=== PATIENT | male | born 1965 | race Caucasian/White ===

== ENCOUNTER 2018-05-30 19:13 | Inpatient (IN) | payer OTHER ==
[~2018-05-30] VITALS: Ht 187.9 cm; Wt 109.5 kg
[2018-05-30] VITALS (7 sets, daily range): BP systolic 97–117; BP diastolic 58–73
--- NOTE | ~2018-05-30 | PR ---
[place], [place] PROGRESS NOTE NAME: PARUL LEON UNIT #: [id number] ROOM: 504 DOCTOR: MARYSOL DALTON MD BIRTHDATE: [birth year] DOS: 06/06/2018 I agree with the assessment and plan made by the nurse practitioner, Cheli Young. I had a dumd-ci-frug encounter, I reviewed the images and labs and made the necessary changes in the note. Clarissa Dalton MD CM:PNTRANS [phone] MARYSOL DALTON MD 06/25/18 0730 interface
--- NOTE | ~2018-05-30 | EKG ---
[place], [place] ELECTROCARDIOGRAM REPORT NAME: PARUL LEON UNIT #: [id number] ROOM: 504 DOCTOR: ANGE DRAFT REPORT BIRTHDATE: [birth year] [facility] Test Date: 2018-05-30 Test Time: 20:49:42 Pat Name: PARUL LEON Department: Room: [facility] Gender: M Curing Press Operator: Darien Brantley : 1965 Requested By: KIMBERLEY JOHNSON Order Number: [id number] Reading MD: Lusi Lucio MD Measurements Intervals [place] Rate: 91 P: 61 [place]: 180 QRS: 31 QRSD: 100 T: 35 QT: 387 QTc: 477 Interpretive Statements Sinus rhythm Ventricular premature complex Borderline prolonged QT interval Electronically Signed On 06-01-2018 13:58:38 PDT by Luis Lucio MD CM:EKGRPT:ELECTROCARDIOGRAM REPORT [id number] KIMBERLEY JOHNSON EPIPHANY DRAFT REPORT KIMBERLEY JOHNSON
--- NOTE | ~2018-05-30 | PR ---
[place], [place] PROGRESS NOTE [id number] UNIT #: [id number] ROOM: 504 DOCTOR: ELMA CAMPOS DPM BIRTHDATE: [birth year] DOS: 06/01/2018 PREOP NOTE The patient was seen in preoperative area for evaluation of both feet. He was seen yesterday in the hospital and found to have infection in both feet. The patient states about a year ago when he was living in [place], he had the amputation of part of his right foot and the amputation of his left great toe. He states the right foot never completely healed. He has had wounds on both feet for quite some time and he states he has been taking care of them himself. He has not seen a doctor for a while. He denies being diabetic, but his A1c is elevated. I examined both feet. Pedal pulses are decreased. Sensation is diminished bilaterally. There is a large area of ulceration, plantar third metatarsal head with obvious purulent drainage. There is localized edema and erythema as well as malodor, looks like it tracks dorsally and there is a small wound dorsally on the forefoot on the left side. There is also a wound at the medial and lateral left second toe. Previous great toe has been amputated. On the right foot, there is a wound distal medial near the first metatarsal of the transmetatarsal amputation site with fluctuance and crepitus, localized erythema and increased temperature noted. I discussed with the patient and proposed procedure would be incision and drainage of both feet with bone biopsies. The goal is to get infection under control in both feet. After reviewing the CT and x-ray on the left side, he will most likely need a transmetatarsal amputation, but today we are going to control the infection, drained the abscesses and flushed both feet out. I wanted to order a postoperative arterial vascular study as well. I discussed with the patient possible complications of the procedures and that he will most definitely need more work done possibly on both feet. He is agreeable to the procedures and we will proceed with taking him to the OR shortly. He was given the opportunity to ask questions and all questions were answered. ELMA DIANNEESKO, DPM CM:PNTRANS [phone] ELMA CAMPOS DPM 06/02/18 0732 interface
--- NOTE | ~2018-05-30 | CON ---
[place], [place] REPORT OF CONSULTATION NAME: PARUL LEON UNIT #: [id number] ROOM: 504 [facility] [birth year] DOS: 06/06/2018 I agree with the assessment and plan made by the nurse practitioner, Cheli Young. I had a mhkg-dl-[id number] encounter, I reviewed the images and labs and made the necessary changes in the note. Clarissa Bhatia MD CM:CONSTR:REPORT OF CONSULTATION 1706 06/25/18 0731 LATASHA ALTAMIRANO.TM
--- NOTE | ~2018-05-30 | PR ---
[place], [place] PROGRESS NOTE NAME: PARUL LEON UNIT #: [id number] ROOM: 504 DOCTOR: ELMA CAMPOS DPM BIRTHDATE: [birth year] DOS: 06/05/2018 SUBJECTIVE: This patient is seen 1 day status post transmetatarsal amputation, left foot and 4 days status post I and D with bone biopsy and debridement, right foot. He states he is feeling well. He has no pain. Denies fever, chills, nausea, vomiting or night sweats. Denies calf pain. Overall, no complaints in regards to his feet. OBJECTIVE: EXTREMITIES: Dressings are removed from both feet. The right foot is extremely clean and granular at the surgical site; the bone is almost completely granulated over at this time; there is no surrounding edema or erythema, no purulent drainage, no malodor, site is very clean, granular and healing well. The left foot TMA site looks good; incisions well coapted; no active bleeding, no fluctuance or signs of abscess or hematoma; no signs of active infection. All infected tissue has been removed and left foot appears to be doing well 1 day post-surgery. ASSESSMENT: Status post surgery, both feet. PLAN: At this time, recommend wound VAC application to the right foot and change every 3 days. We could remove it on Friday and evaluate the wound, but if there is a problem over the weekend, nursing can address it. Adaptic was applied prior to application of the wound VAC. On the left foot, recommend a dressing change every other day with Adaptic, 4x4s, ABD, Kerlix and Randall wrap. He is doing very well with both feet at this time status post surgery. Continue very limited weightbearing. We will check on him over the weekend and continue to follow while in the hospital, but right now both feet are stable and without any signs of infection. ELMA CAMPOS DPM CM:PNTRANS [id number] ELMA CAMPOS DPM 06/06/18 0035 interface
--- NOTE | ~2018-05-30 | O ---
[place], [place] OPERATIVE NOTE NAME: PARUL LEON UNIT #: [id number] ROOM: 504 DOCTOR: ELMA ROSSI DPM BIRTHDATE: [birth year] DOS: 06/01/2018 SURGEON: Elma Rossi DPM [employer] SALES REPRESENTATIVE: Samm Arias DPM resident PREOPERATIVE DIAGNOSES: Abscess, infection, osteomyelitis, right and left foot. POSTOPERATIVE DIAGNOSES: Abscess, infection, osteomyelitis, right and left foot. PROCEDURES: Incision and drainage of abscess, right foot and left foot with bone biopsy and bone debridement. FINDINGS: LMAC. INJECTABLES: 10 mL of 0.5% Marcaine plain injected into each foot for a total of 20 mL. ESTIMATED BLOOD LOSS: About 10 mL. PATHOLOGY: Bone for pathology and cultures in both feet. COMPLICATIONS: None. DESCRIPTION OF PROCEDURE: After appropriate preoperative evaluation, the patient was brought in the OR and placed on the operating table in supine position. Attention was directed to both feet where there is noted to be ulcerations with infection noted. Anesthesia was then administered per anesthesia record. Next, a total of 10 mL of 0.5% Marcaine plain was injected into each foot proximal to the ulcerations in a field block fashion. The areas were then prepped and draped in the usual sterile manner and both feet were lowered in surgical field. The left foot was covered with a stockinette. Attention was directed to the right foot, there is noted to be ulceration dorsal distal to the first metatarsal area of the transmetatarsal amputation site. This ulcer did track plantarly and plantarly there was some crepitation of the tissue with some expressible purulent drainage. Using a 15 blade, this area was incised open and there was noted to be first metatarsal noted within the ulceration. This was palpable prior to incision. There was noted to be about 2-3 mL of purulence in the area. Area was inspected for any tracking and tracked a little more dorsal so we opened that area up. A bone cutter and rongeur were used to resect the prominent first metatarsal. Cultures were done of the bone and this bone will also be sent to pathology as well. No further purulence was found and no further tracking was noted, so the area was irrigated with pulse irrigation with 3 liters of normal saline. The area was packed with half inch plain Nu Gauze packing, 4 x 4's, ABD, Kerlix and an Randall wrap. Gloves were changed. Separate instruments were used and the dressed area was removed from the surgical field. At this time, attention was directed to the left foot where there was noted to be a large ulceration in the plantar third metatarsal head. There was obvious purulent drainage, expressible drainage noted that was [place], [place] OPERATIVE NOTE NAME: PARUL LEON UNIT #: [id number] ROOM: [facility] DOCTOR: BETH BARBA,ELMA BIRTHDATE: [birth year] malodor. This tracks both dorsally and proximally and in the second intermetatarsal space, there was destruction of bone noted to palpation. A rongeur was used to resect some of the destroyed bone. Bone cultures were done and the bone was also sent to pathology for evaluation. The area was incised both dorsally and plantarly and there was a 3 or 4 mL of purulent drainage noted. There was a large deficit in the forefoot where the abscess and infection appears chronic in nature. There was also a wound noted to medial-lateral second toe that tracked plantarly and that was incised as well. No further purulence was encountered and no further tracking was seen, so the area was pulse irrigated with 3 liters of normal saline. Half inch plain Nu Gauze packing, 4 x 4's, ABDs, Kerlix, and Randall was applied. Vascularity established to his feet during the procedure. No necrotic tissue was encountered and infections were under good control at this point. The patient left the OR with vital signs stable and intact and transported to the recovery room. We will await cultures and bone cultures, order arterial vascular studies to evaluate for peripheral flow. The patient will most likely need transmetatarsal amputation here in the near future, we are going to establish arterial flow and get the infection under control prior to this. The patient to be followed up in the hospital tomorrow for reevaluation. ELMA JAMESON ROSSI CM:OPRECORD:OPERATIVE NOTE [id number] ELMA ROSSI DPM 06/09/18 1003 interface
--- NOTE | ~2018-05-30 | PR ---
[place], [place] PROGRESS NOTE NAME: PARUL LEON UNIT #: [id number] ROOM: 504 DOCTOR: NOLAN MORAN BIRTHDATE: [birth year] DOS: 06/06/2018 SUBJECTIVE: The patient is a 52-year-old male who is being followed for an infected right diabetic foot with osteomyelitis. The pathology from 06/02/2018 did show acute osteomyelitis from bilateral feet. The cultures have been polymicrobial including group G strep, Proteus and MRSA. He remains on Rocephin. The vancomycin was to be continued, but appears to have been stopped this morning. He is awaiting a bed at [facility]. He is tolerating the antibiotics. Denies fever, chills, nausea, vomiting or diarrhea. No rash or itch. No cough, shortness of breath, no pain, no fevers. VITAL SIGNS: Temperature 98.1, pulse 75, respirations 18, BP 110/67. LABORATORY DATA: WBCs 7.2, platelets 365, BUN 12, creatinine 0.7. PHYSICAL EXAMINATION: GENERAL: A 52-year-old male, in no acute distress. HEENT: Normocephalic, no thrush. LUNGS: Clear to auscultation bilaterally. Respirations even and unlabored. HEART: Regular rhythm. No murmur appreciated. ABDOMEN: Soft, nondistended. EXTREMITIES: +1 to 2 edema bilateral lower extremities, bilateral feet wrapped. Right foot with a VAC in place. SKIN: Warm, dry, free of rashes. ASSESSMENT: Bilateral feet osteomyelitis with polymicrobial infection including group G strep methicillin-resistant Staphylococcus aureus and Proteus. PLAN: Continue the Rocephin. Resume the vancomycin. DECEMBER LUISA FRANCISCO [place], [place] PROGRESS NOTE NAME: PARUL LEON UNIT #: [id number] ROOM: 504 DOCTOR: NOLAN MORANDECEMBER BIRTHDATE: [birth year] Clarissa Bhatia MD CM:MARBIN [id number] DECEMBER NOLAN [facility] 06/25/18 0729 interface
--- NOTE | ~2018-05-30 | PR ---
[place], [place] PROGRESS NOTE NAME: PARUL LEON UNIT #: [id number] ROOM: 504 DOCTOR: MARYSOL DALTON MD BIRTHDATE: [birth year] DOS: 06/06/2018 I agree with the assessment and plan made by the nurse practitioner, Cheli Young. I reviewed the labs and imaging, and made the necessary changes in the note. Clarissa Dalton MD CM:PNTRANS [phone] MARYSOL DALTON MD 06/25/182104 interface
--- NOTE | ~2018-05-30 | O ---
[place], [place] OPERATIVE NOTE NAME: PARUL LEON UNIT #: [id number] ROOM: 504 DOCTOR: YEFRI BARBAJUDITH Lobo BIRTHDATE: [birth year] DOS: 06/04/2018 INTERIM NOTE: The patient was consulted for transmetatarsal amputation of the left forefoot due to continued purulent drainage, infection and apparent osteomyelitis with severe destructive changes to the bones of the forefoot. Discussed with the patient, he may need a tendo Achilles lengthening or endoscopic gastro recession at a later date. Discussed the advantages and disadvantages of the procedure, potential complications including but not limited to over correction, under correction, recurrence of deformity, continued infection, more proximal amputation, loss of limb, dehiscence, nerve pain, etc. The patient understood and agreed to proceed with transmetatarsal amputation of the left foot. PREOPERATIVE DIAGNOSES: Infection, abscess, osteomyelitis, left forefoot of the toes and metatarsals. POSTOPERATIVE DIAGNOSES: Infection, abscess, osteomyelitis, left forefoot of the toes and metatarsals. Pending pathology. PROCEDURE PERFORMED: Transmetatarsal amputation, left foot. ESTIMATED BLOOD LOSS: Approximately 200 mL. SPECIMEN: Left forefoot. DRAINS: None. PACKING: None. COLOR PRINTER OPERATOR: Sander Keating DPM. ANESTHESIA: General. PROCEDURE IN DETAIL: The patient was brought to operating room, placed in the operating table in supine position. Anesthesia administered per Anesthesia Department. Local block of 10 mL of 1% lidocaine plain was utilized for ankle block. The left lower extremity was prepped and draped in usual aseptic manner. There were ulcerations with purulent drainage noted to the plantar forefoot and dorsal forefoot. An incision was made with a 15 blade transversely proximal to the infected open wounds, to and through subcutaneous tissue level. Meticulous dissection was followed down to the level of the metatarsal bones, where the forefoot was disarticulated at the MPJs. Excessive bleeding was noted while performing meticulous dissection of the metatarsals to normal bone more proximally; therefore, tourniquet was then applied and inflated to 300 mmHg to the left thigh, was on for total duration of 26 minutes. Dissection continued after elevation of the tourniquet to free the metatarsals to the proximal metatarsals to healthy bone. All of the metatarsals distally were noted to be necrotic, discolored, black and brown discoloration with necrotic soft bone consistent with chronic osteomyelitis. Next, a sagittal saw was utilized to resect the metatarsals 1 through 5 proximally to maintain a metatarsal parabola. [place], [place] OPERATIVE NOTE NAME: PARUL LEON UNIT #: [id number] ROOM: [facility] DOCTOR: JUDITH ASIF DPM BIRTHDATE: [birth year] The area was made smooth with bone rongeur. There were no sharp prominent edges to the resected remaining metatarsals. All necrotic nonviable soft tissue was then excised meticulously with a 15 blade at this time to normal healthy tissue. The exposed remaining tendons were resected. The tourniquet was then released at this time and all bleeders were ligated with the cautery. There were no further bleeders noted at this time. Next, the power pulse irrigation with sterile saline was utilized and next primary closure of the flap plantar to dorsal was performed utilizing 2-0 nylon in alternating simple interrupted stich, horizontal and vertical mattress stitches to close the remaining soft tissue. The incision was noted to be well coapted with the sutures intact and no excessive bleeding noted and no apparent complication. The postop dressings were then applied consisting of Betadine soaked adaptic, 4 x 4s, ABD, Kerlix and CHATA bandage. The patient tolerated the procedures and the anesthesia well and will return to the nursing unit to resume orders. The patient is to maintain nonweightbearing status, bedside commode to be used, elevate the left leg and apply ice 30 minutes per hour today behind the left knee. We ordered a stat H and H on the patient which returned at 8.0, down from 8.1 preoperatively. Internal Medicine will be notified by the resident, Dr. Keating, to have them to keep an eye on the H and H due to the blood loss and further bleeding possible, additional blood to be given. Discussed the case with Dr. Rossi, who will see the patient tomorrow and he will be covering for me this weekend and will answer any questions if need be. The patient was aware that he may indeed a KENYATTA or gastroc recession in the future. The patient did show stenosis in the arterial testing; therefore, I would like to obtain a vascular consultation before proceeding with any further proximal procedure such a KENYATTA or gastroc recession. Again, the patient will be seen tomorrow by Dr. Rossi. JUDITH ASIF DPM CM:OPRECORD:OPERATIVE NOTE [id number] JUDITH ASIF DPM 06/10/18 0803 interface
[2018-05-30 20:01] LABS: BASO # 0.1 10*3/uL (0.0-0.1); BASO % 0.4 % (0.0-1.0); EOS # 0.1 10*3/uL (0.0-0.4); EOS % 0.7 % (1.0-4.0); HEMATOCRIT 27.1 % (42.0-52.0); HEMOGLOBIN 8.5 g/dl (14.0-18.0); LYMPH # 1.7 10*3/uL (1.3-4.4); LYMPH % 12.8 % (27.0-41.0); MEAN CELL VOLUME 81.4 fl (80.0-94.0); MEAN CORPUSCULAR HGB 25.5 pg (27.0-31.0); MEAN CORPUSCULAR HGB CONC 31.4 g/dl (33.0-37.0); MEAN PLATELET VOLUME 9.7 fl (9.6-12.3); MONO # 0.9 10*3/uL (0.1-1.0); MONO % 6.7 % (3.0-9.0); NEUT # 10.5 10*3/uL (2.3-7.9); NEUT % 78.5 % (47.0-73.0); PLATELET COUNT AUTOMATED 494 10*3/uL (130-400); RED BLOOD COUNT 3.33 10*6/uL (4.50-5.90); RED CELL DISTRI WIDTH 15.6 % (0-14.5); WHITE BLOOD COUNT 13.3 10*3/uL (4.8-10.8)
[2018-05-30 20:17] LABS: ALBUMIN 2.3 gm/dl (3.1-4.5); ALKALINE PHOSPHATASE 103 U/L (45-117); BUN 22 mg/dl (7-24); CHLORIDE 91 mmol/L (98-107); CREATININE 1.42 mg/dL (0.70-1.30); POTASSIUM 2.8 mmol/L (3.5-5.1); SGOT/AST 22 IU/L (3-35); SGPT/ALT 23 U/L (12-78); SODIUM 129 mmol/L (136-145); TOTAL PROTEIN 8.8 gm/dL (6.4-8.2)
[2018-05-30 20:21] LABS: TROPONIN I < 0.015 ng/ml (<0.045)
[2018-05-31] VITALS: BP 103/62
[2018-05-31] MEDS ORDERED: FUROSEMIDE40 MG PO (01:39)
[2018-05-31] MEDS ORDERED: GOOD NEIGHBOR P20 MG PO (01:41)
[2018-05-31] MEDS ORDERED: LISINOPRIL2.5 MG PO (01:41)
[2018-05-31] MEDS ORDERED: POTASSIUM CHLO20 MEQ PO (01:41)
[2018-05-31] MEDS ORDERED: METOLAZONE2.5 MG PO (01:42)
[2018-05-31] MEDS ORDERED: B12100 MC1 PO (01:42)
[2018-05-31] MEDS ORDERED: FLONASE ALLERG9.9 ML NAS (01:43)
[2018-05-31 06:31] LABS: BASO % 0.4 % (0.0-1.0); BUN 23 mg/dl (7-24); CHLORIDE 95 mmol/L (98-107); CHOLESTEROL 115 mg/dL (<200); EOS # 0.2 10*3/uL (0.0-0.4); EOS % 1.7 % (1.0-4.0); HDL CHOLESTEROL 35 mg/dl (40-60); HEMATOCRIT 25.3 % (42.0-52.0); HEMOGLOBIN 7.9 g/dl (14.0-18.0); LDL CHOLESTEROL 64 mg/dL (9-159); LYMPH % 10.7 % (27.0-41.0); MEAN CELL VOLUME 80.8 fl (80.0-94.0); MEAN CORPUSCULAR HGB 25.2 pg (27.0-31.0); MEAN CORPUSCULAR HGB CONC 31.2 g/dl (33.0-37.0); MEAN PLATELET VOLUME 9.6 fl (9.6-12.3); MONO # 0.6 10*3/uL (0.1-1.0); MONO % 6.4 % (3.0-9.0); NEUT # 7.7 10*3/uL (2.3-7.9); NEUT % 79.5 % (47.0-73.0); PHOSPHOROUS 3.4 mg/dL (2.5-4.9); PLATELET COUNT AUTOMATED 413 10*3/uL (130-400); POTASSIUM 3.1 mmol/L (3.5-5.1); RED BLOOD COUNT 3.13 10*6/uL (4.50-5.90); RED CELL DISTRI WIDTH 15.8 % (0-14.5); SODIUM 130 mmol/L (136-145); TRIGLYCERIDES 80 mg/dl (<150); VLDL CHOLESTEROL 16 mg/dL (6-40); WHITE BLOOD COUNT 9.7 10*3/uL (4.8-10.8)
[2018-05-31 07:38] LABS: VITAMIN D, 25-HYDROXY 20.8 ng/mL (30-100)
[2018-05-31 08:00] VITALS: BP 96/55
[2018-05-31 13:40] LABS: BASO # 0.1 10*3/uL (0.0-0.1); BASO % 0.6 % (0.0-1.0); EOS # 0.2 10*3/uL (0.0-0.4); EOS % 2.4 % (1.0-4.0); HEMATOCRIT 25.8 % (42.0-52.0); LYMPH % 10.5 % (27.0-41.0); MEAN CELL VOLUME 81.9 fl (80.0-94.0); MEAN CORPUSCULAR HGB 25.4 pg (27.0-31.0); MEAN PLATELET VOLUME 9.2 fl (9.6-12.3); MONO # 0.8 10*3/uL (0.1-1.0); MONO % 8.8 % (3.0-9.0); NEUT # 6.9 10*3/uL (2.3-7.9); NEUT % 76.3 % (47.0-73.0); PLATELET COUNT AUTOMATED 376 10*3/uL (130-400); RED BLOOD COUNT 3.15 10*6/uL (4.50-5.90); RED CELL DISTRI WIDTH 15.7 % (0-14.5); WHITE BLOOD COUNT 9.1 10*3/uL (4.8-10.8)
[2018-05-31 13:49] LABS: ACT PARTIAL THROMBO TIME 25.2 SECONDS (20.8-31.5)
[2018-05-31 16:00] VITALS: BP 96/60
[2018-05-31 20:00] VITALS: BP 156/73
[2018-06-01] VITALS (8 sets, daily range): BP systolic 94–160; BP diastolic 52–80
[2018-06-01 06:16] LABS: BASO # 0.1 10*3/uL (0.0-0.1); BASO % 0.8 % (0.0-1.0); EOS # 0.2 10*3/uL (0.0-0.4); EOS % 2.7 % (1.0-4.0); HEMATOCRIT 27.4 % (42.0-52.0); HEMOGLOBIN 8.2 g/dl (14.0-18.0); LYMPH # 1.1 10*3/uL (1.3-4.4); MEAN CELL VOLUME 83.5 fl (80.0-94.0); MEAN CORPUSCULAR HGB CONC 29.9 g/dl (33.0-37.0); MEAN PLATELET VOLUME 9.5 fl (9.6-12.3); MONO # 0.4 10*3/uL (0.1-1.0); MONO % 6.7 % (3.0-9.0); NEUT # 4.8 10*3/uL (2.3-7.9); NEUT % 72.1 % (47.0-73.0); PLATELET COUNT AUTOMATED 432 10*3/uL (130-400); RED BLOOD COUNT 3.28 10*6/uL (4.50-5.90); RED CELL DISTRI WIDTH 15.6 % (0-14.5); WHITE BLOOD COUNT 6.6 10*3/uL (4.8-10.8)
[2018-06-01 06:32] LABS: CHLORIDE 99 mmol/L (98-107); CREATININE 0.78 mg/dL (0.70-1.30); POTASSIUM 3.9 mmol/L (3.5-5.1); SODIUM 138 mmol/L (136-145)
[2018-06-01 06:35] LABS: BUN 16 mg/dl (7-24)
[2018-06-02] VITALS: BP 94/58
[2018-06-02 06:18] LABS: BASO # 0.1 10*3/uL (0.0-0.1); BASO % 0.9 % (0.0-1.0); EOS # 0.2 10*3/uL (0.0-0.4); HEMATOCRIT 26.5 % (42.0-52.0); HEMOGLOBIN 7.9 g/dl (14.0-18.0); LYMPH # 1.1 10*3/uL (1.3-4.4); LYMPH % 13.6 % (27.0-41.0); MEAN CELL VOLUME 83.3 fl (80.0-94.0); MEAN CORPUSCULAR HGB 24.8 pg (27.0-31.0); MEAN CORPUSCULAR HGB CONC 29.8 g/dl (33.0-37.0); MEAN PLATELET VOLUME 9.4 fl (9.6-12.3); MONO # 0.6 10*3/uL (0.1-1.0); MONO % 6.8 % (3.0-9.0); NEUT # 6.2 10*3/uL (2.3-7.9); NEUT % 75.8 % (47.0-73.0); PLATELET COUNT AUTOMATED 442 10*3/uL (130-400); RED BLOOD COUNT 3.18 10*6/uL (4.50-5.90); RED CELL DISTRI WIDTH 15.8 % (0-14.5); WHITE BLOOD COUNT 8.1 10*3/uL (4.8-10.8)
[2018-06-02 06:37] LABS: BUN 12 mg/dl (7-24); CHLORIDE 99 mmol/L (98-107); CREATININE 0.72 mg/dL (0.70-1.30); POTASSIUM 3.3 mmol/L (3.5-5.1); SODIUM 135 mmol/L (136-145)
[2018-06-02 08:00] VITALS: BP 103/62; BP 108/66; BP 123/57
[2018-06-02 12:00] VITALS: BP 100/60; BP 106/62; BP 113/48; BP 127/61
[2018-06-02 16:00] VITALS: BP 112/64
[2018-06-02 20:00] VITALS: BP 109/67
[2018-06-03] VITALS: BP 102/55; BP 151/56
[2018-06-03 08:00] VITALS: BP 102/56
[2018-06-03 11:40] LABS: BASO # 0.1 10*3/uL (0.0-0.1); BASO % 0.7 % (0.0-1.0); EOS # 0.1 10*3/uL (0.0-0.4); HEMATOCRIT 26.5 % (42.0-52.0); LYMPH # 1.1 10*3/uL (1.3-4.4); LYMPH % 15.5 % (27.0-41.0); MEAN CELL VOLUME 83.9 fl (80.0-94.0); MEAN CORPUSCULAR HGB 25.3 pg (27.0-31.0); MEAN CORPUSCULAR HGB CONC 30.2 g/dl (33.0-37.0); MEAN PLATELET VOLUME 8.5 fl (9.6-12.3); MONO # 0.4 10*3/uL (0.1-1.0); MONO % 6.4 % (3.0-9.0); NEUT # 5.2 10*3/uL (2.3-7.9); NEUT % 74.5 % (47.0-73.0); PLATELET COUNT AUTOMATED 399 10*3/uL (130-400); RED BLOOD COUNT 3.16 10*6/uL (4.50-5.90); RED CELL DISTRI WIDTH 15.7 % (0-14.5); WHITE BLOOD COUNT 6.9 10*3/uL (4.8-10.8)
[2018-06-03 11:52] LABS: BUN 9 mg/dl (7-24); CHLORIDE 99 mmol/L (98-107); CREATININE 0.71 mg/dL (0.70-1.30); POTASSIUM 4.1 mmol/L (3.5-5.1); SODIUM 134 mmol/L (136-145)
[2018-06-03 12:00] VITALS: BP 104/60
[2018-06-03 16:00] VITALS: BP 120/73
[2018-06-03 20:00] VITALS: BP 105/59
[2018-06-04] VITALS (10 sets, daily range): BP systolic 101–121; BP diastolic 50–72
[2018-06-04 06:40] LABS: BASO % 0.6 % (0.0-1.0); EOS # 0.2 10*3/uL (0.0-0.4); EOS % 3.2 % (1.0-4.0); HEMATOCRIT 27.3 % (42.0-52.0); HEMOGLOBIN 8.1 g/dl (14.0-18.0); LYMPH # 1.1 10*3/uL (1.3-4.4); LYMPH % 16.7 % (27.0-41.0); MEAN CELL VOLUME 83.5 fl (80.0-94.0); MEAN CORPUSCULAR HGB 24.8 pg (27.0-31.0); MEAN CORPUSCULAR HGB CONC 29.7 g/dl (33.0-37.0); MEAN PLATELET VOLUME 9.1 fl (9.6-12.3); MONO # 0.4 10*3/uL (0.1-1.0); MONO % 6.3 % (3.0-9.0); NEUT # 4.9 10*3/uL (2.3-7.9); PLATELET COUNT AUTOMATED 422 10*3/uL (130-400); RED BLOOD COUNT 3.27 10*6/uL (4.50-5.90); RED CELL DISTRI WIDTH 15.7 % (0-14.5); WHITE BLOOD COUNT 6.8 10*3/uL (4.8-10.8)
[2018-06-04 07:08] LABS: BUN 10 mg/dl (7-24); CHLORIDE 101 mmol/L (98-107); CREATININE 0.68 mg/dL (0.70-1.30); POTASSIUM 4.1 mmol/L (3.5-5.1); SODIUM 137 mmol/L (136-145)
[2018-06-04 14:30] LABS: HEMATOCRIT 27.2 % (42.0-52.0)
[2018-06-05] VITALS: BP 116/64
[2018-06-05 06:35] LABS: BASO # 0.1 10*3/uL (0.0-0.1); BASO % 0.7 % (0.0-1.0); EOS # 0.2 10*3/uL (0.0-0.4); EOS % 2.3 % (1.0-4.0); HEMOGLOBIN 7.1 g/dl (14.0-18.0); LYMPH # 1.4 10*3/uL (1.3-4.4); LYMPH % 16.4 % (27.0-41.0); MEAN CELL VOLUME 84.5 fl (80.0-94.0); MEAN CORPUSCULAR HGB CONC 29.6 g/dl (33.0-37.0); MEAN PLATELET VOLUME 9.1 fl (9.6-12.3); MONO # 0.5 10*3/uL (0.1-1.0); MONO % 6.2 % (3.0-9.0); NEUT # 6.1 10*3/uL (2.3-7.9); NEUT % 73.3 % (47.0-73.0); PLATELET COUNT AUTOMATED 399 10*3/uL (130-400); RED BLOOD COUNT 2.84 10*6/uL (4.50-5.90); RED CELL DISTRI WIDTH 15.9 % (0-14.5); WHITE BLOOD COUNT 8.3 10*3/uL (4.8-10.8)
[2018-06-05 06:42] LABS: BUN 10 mg/dl (7-24); CHLORIDE 103 mmol/L (98-107); CREATININE 0.63 mg/dL (0.70-1.30); POTASSIUM 4.3 mmol/L (3.5-5.1); SODIUM 136 mmol/L (136-145)
[2018-06-05 08:00] VITALS: BP 123/57
[2018-06-05 12:00] VITALS: BP 106/62
[2018-06-05 16:00] VITALS: BP 104/60
[2018-06-05 20:00] VITALS: BP 116/70
[2018-06-06] VITALS (10 sets, daily range): BP systolic 95–118; BP diastolic 51–67
[2018-06-06 06:19] LABS: BASO % 0.6 % (0.0-1.0); EOS # 0.2 10*3/uL (0.0-0.4); EOS % 2.8 % (1.0-4.0); HEMOGLOBIN 6.8 g/dl (14.0-18.0); LYMPH # 1.3 10*3/uL (1.3-4.4); LYMPH % 17.4 % (27.0-41.0); MEAN CELL VOLUME 84.6 fl (80.0-94.0); MEAN CORPUSCULAR HGB CONC 29.6 g/dl (33.0-37.0); MEAN PLATELET VOLUME 9.2 fl (9.6-12.3); MONO # 0.4 10*3/uL (0.1-1.0); MONO % 6.1 % (3.0-9.0); NEUT # 5.1 10*3/uL (2.3-7.9); NEUT % 71.3 % (47.0-73.0); PLATELET COUNT AUTOMATED 365 10*3/uL (130-400); RED BLOOD COUNT 2.72 10*6/uL (4.50-5.90); RED CELL DISTRI WIDTH 15.9 % (0-14.5); WHITE BLOOD COUNT 7.2 10*3/uL (4.8-10.8)
[2018-06-06 06:27] LABS: BUN 12 mg/dl (7-24); CHLORIDE 101 mmol/L (98-107); POTASSIUM 4.2 mmol/L (3.5-5.1); SODIUM 135 mmol/L (136-145)
[2018-06-07] VITALS: BP 111/58
[2018-06-07 05:57] LABS: BASO # 0.1 10*3/uL (0.0-0.1); BASO % 0.8 % (0.0-1.0); EOS # 0.2 10*3/uL (0.0-0.4); EOS % 2.4 % (1.0-4.0); HEMOGLOBIN 7.9 g/dl (14.0-18.0); LYMPH # 1.2 10*3/uL (1.3-4.4); LYMPH % 18.1 % (27.0-41.0); MEAN CELL VOLUME 84.4 fl (80.0-94.0); MEAN CORPUSCULAR HGB 25.6 pg (27.0-31.0); MEAN CORPUSCULAR HGB CONC 30.4 g/dl (33.0-37.0); MEAN PLATELET VOLUME 9.1 fl (9.6-12.3); MONO # 0.4 10*3/uL (0.1-1.0); MONO % 6.4 % (3.0-9.0); NEUT # 4.7 10*3/uL (2.3-7.9); NEUT % 70.8 % (47.0-73.0); PLATELET COUNT AUTOMATED 357 10*3/uL (130-400); RED BLOOD COUNT 3.08 10*6/uL (4.50-5.90); WHITE BLOOD COUNT 6.6 10*3/uL (4.8-10.8)
[2018-06-07 06:23] LABS: BUN 15 mg/dl (7-24); CHLORIDE 105 mmol/L (98-107); POTASSIUM 4.4 mmol/L (3.5-5.1); SODIUM 138 mmol/L (136-145)
[2018-06-07 08:00] VITALS: BP 103/62
[2018-06-07 12:00] VITALS: BP 127/61
[2018-06-07 16:00] VITALS: BP 113/63
[2018-06-07 20:00] VITALS: BP 104/59
[2018-06-08] VITALS: BP 119/73
[2018-06-08 06:11] LABS: BASO # 0.1 10*3/uL (0.0-0.1); BASO % 0.8 % (0.0-1.0); EOS # 0.2 10*3/uL (0.0-0.4); EOS % 3.3 % (1.0-4.0); HEMATOCRIT 26.4 % (42.0-52.0); HEMOGLOBIN 7.8 g/dl (14.0-18.0); LYMPH # 1.4 10*3/uL (1.3-4.4); LYMPH % 21.8 % (27.0-41.0); MEAN CELL VOLUME 84.9 fl (80.0-94.0); MEAN CORPUSCULAR HGB 25.1 pg (27.0-31.0); MEAN CORPUSCULAR HGB CONC 29.5 g/dl (33.0-37.0); MEAN PLATELET VOLUME 9.2 fl (9.6-12.3); MONO # 0.4 10*3/uL (0.1-1.0); MONO % 6.7 % (3.0-9.0); NEUT # 4.2 10*3/uL (2.3-7.9); PLATELET COUNT AUTOMATED 341 10*3/uL (130-400); RED BLOOD COUNT 3.11 10*6/uL (4.50-5.90); RED CELL DISTRI WIDTH 16.2 % (0-14.5); WHITE BLOOD COUNT 6.4 10*3/uL (4.8-10.8)
[2018-06-08 06:12] LABS: BUN 13 mg/dl (7-24); CHLORIDE 104 mmol/L (98-107); CREATININE 0.73 mg/dL (0.70-1.30); POTASSIUM 4.3 mmol/L (3.5-5.1); SODIUM 137 mmol/L (136-145)
[2018-06-08 08:00] VITALS: BP 115/71
[2018-06-08 12:00] VITALS: BP 119/60
[2018-06-08] MEDS ORDERED: FEROSUL325 MG PO (14:14)
[2018-06-08] MEDS ORDERED: VITAMIN D-32000 UNIT PO (14:14)
[2018-06-08 16:00] VITALS: BP 112/63
[2018-06-08 20:00] VITALS: BP 112/69
== END 2018-06-08 21:04 | disposition short-term general hospital (02) | DRG 853 ==
LOC: ED 19:13 → 5E 20:52 → EDHOLD 20:52 → 5E 21:09
PROVIDERS: Internal Medicine; Nurse Practitioner Family; Podiatrist; Student in an Organized Health Care Education/Training Program
PROC: 0QBP0ZZ Excision of Left Metatarsal, Open Approach (ICD-10-PCS; principal; 2018-06-01)
PROC: 0QBN0ZZ Excision of Right Metatarsal, Open Approach (ICD-10-PCS; principal; 2018-06-01)
PROC: 0J9R0ZZ Drainage of Left Foot Subcutaneous Tissue and Fascia, Open Approach (ICD-10-PCS; principal; 2018-06-01)
PROC: 0J9Q0ZZ Drainage of Right Foot Subcutaneous Tissue and Fascia, Open Approach (ICD-10-PCS; principal; 2018-06-01)
PROC: 0Y6N0ZD Detachment at Left Foot, Partial 4th Ray, Open Approach (ICD-10-PCS; 2018-06-04)
PROC: 0Y6N0ZC Detachment at Left Foot, Partial 3rd Ray, Open Approach (ICD-10-PCS; 2018-06-04)
PROC: 0Y6N0ZF Detachment at Left Foot, Partial 5th Ray, Open Approach (ICD-10-PCS; 2018-06-04)
PROC: 0Y6N0Z9 Detachment at Left Foot, Partial 1st Ray, Open Approach (ICD-10-PCS; 2018-06-04)
PROC: 0Y6N0ZB Detachment at Left Foot, Partial 2nd Ray, Open Approach (ICD-10-PCS; 2018-06-04)
PROC: 30233N1 Transfusion of Nonautologous Red Blood Cells into Peripheral Vein, Percutaneous Approach (ICD-10-PCS; 2018-06-06)
DX: A41.9 Sepsis, unspecified organism (principal); N17.0 Acute kidney failure with tubular necrosis; E43 Unspecified severe protein-calorie malnutrition; L89.893 Pressure ulcer of other site, stage 3; L89.894 Pressure ulcer of other site, stage 4; E87.1 Hypo-osmolality and hyponatremia; L02.612 Cutaneous abscess of left foot; L02.611 Cutaneous abscess of right foot; M86.172 Other acute osteomyelitis, left ankle and foot; M86.671 Other chronic osteomyelitis, right ankle and foot; I87.2 Venous insufficiency (chronic) (peripheral); E11.51 Type 2 diabetes mellitus with diabetic peripheral angiopathy without gangrene; E11.69 Type 2 diabetes mellitus with other specified complication; B95.1 Streptococcus, group B, as the cause of diseases classified elsewhere; B95.62 Methicillin resistant Staphylococcus aureus infection as the cause of diseases classified elsewhere; B96.4 Proteus (mirabilis) (morganii) as the cause of diseases classified elsewhere; I50.9 Heart failure, unspecified; R65.20 Severe sepsis without septic shock; L89.892 Pressure ulcer of other site, stage 2; D64.9 Anemia, unspecified; D47.3 Essential (hemorrhagic) thrombocythemia; E11.65 Type 2 diabetes mellitus with hyperglycemia; E87.6 Hypokalemia; E87.8 Other disorders of electrolyte and fluid balance, not elsewhere classified; E53.8 Deficiency of other specified B group vitamins; E55.9 Vitamin D deficiency, unspecified; I11.0 Hypertensive heart disease with heart failure; Z89.421 Acquired absence of other right toe(s); Z89.412 Acquired absence of left great toe; Z88.8 Allergy status to other drugs, medicaments and biological substances; Z87.891 Personal history of nicotine dependence; Z82.49 Family history of ischemic heart disease and other diseases of the circulatory system; Z80.41 Family history of malignant neoplasm of ovary; Z84.89 Family history of other specified conditions; Z79.84 Long term (current) use of oral hypoglycemic drugs; Z79.899 Other long term (current) drug therapy; Z68.31 Body mass index [BMI] 31.0-31.9, adult

== ENCOUNTER → 2018-09-04 | Outpatient (CLI) | payer OTHER ==
[~2018-09-04] MED LIST: B12100 MC1 PO; CEFTRIAXON2 GM/50 ML IV; FEROSUL325 M1 PO; FEROSUL325 MG PO; FLONASE ALLERG9.9 ML NAS; FUROSEMIDE40 MG PO; GOOD NEIGHBOR P20 MG PO; LISINOPRIL2.5 MG PO; METOLAZONE2.5 MG PO; POTASSIUM CHLO20 MEQ PO; TETRACYCLINE H500 MG PO; VANCO 1.51.5 GM/500 IV; VITAMIN D-32000 UNIT PO
== END | disposition home or self-care (01) ==
LOC: WOUNDCARE 04:03
DX: E11.621 Type 2 diabetes mellitus with foot ulcer (principal); L97.511 Non-pressure chronic ulcer of other part of right foot limited to breakdown of skin; L84 Corns and callosities; E11.69 Type 2 diabetes mellitus with other specified complication; M86.371 Chronic multifocal osteomyelitis, right ankle and foot; M86.372 Chronic multifocal osteomyelitis, left ankle and foot; E11.51 Type 2 diabetes mellitus with diabetic peripheral angiopathy without gangrene; I50.9 Heart failure, unspecified; E66.9 Obesity, unspecified; Z89.422 Acquired absence of other left toe(s); Z87.891 Personal history of nicotine dependence

== ENCOUNTER → 2018-09-09 | Outpatient (CLI) | payer OTHER | END | disposition home or self-care (01) | LOC: WOUNDCARE 09:39 | DX: T87.89 Other complications of amputation stump (principal); E11.621 Type 2 diabetes mellitus with foot ulcer; L97.511 Non-pressure chronic ulcer of other part of right foot limited to breakdown of skin; L84 Corns and callosities; E11.69 Type 2 diabetes mellitus with other specified complication; M86.371 Chronic multifocal osteomyelitis, right ankle and foot; M86.372 Chronic multifocal osteomyelitis, left ankle and foot; E11.51 Type 2 diabetes mellitus with diabetic peripheral angiopathy without gangrene; I50.9 Heart failure, unspecified; E66.9 Obesity, unspecified; Z68.33 Body mass index [BMI] 33.0-33.9, adult; Y83.5 Amputation of limb(s) as the cause of abnormal reaction of the patient, or of later complication, without mention of misadventure at the time of the procedure ==

== ENCOUNTER 2019-11-20 22:06 | Inpatient (IN) | payer OTHER ==
[~2019-11-20] VITALS: Ht 188 cm; Wt 146.5 kg
[2019-11-20 22:18] VITALS: BP 133/67
[2019-11-20 23:25] LABS: BASO # 0.1 10*3/uL (0.0-0.1); BASO % 0.8 % (0.0-1.0); EOS # 0.3 10*3/uL (0.0-0.4); EOS % 3.6 % (1.0-4.0); HEMATOCRIT 39.2 % (42.0-52.0); HEMOGLOBIN 12.1 g/dl (14.0-18.0); LYMPH # 1.6 10*3/uL (1.3-4.4); LYMPH % 21.5 % (27.0-41.0); MEAN CELL VOLUME 81.2 fl (80.0-94.0); MEAN CORPUSCULAR HGB 25.1 pg (27.0-31.0); MEAN CORPUSCULAR HGB CONC 30.9 g/dl (33.0-37.0); MEAN PLATELET VOLUME 10.8 fl (9.6-12.3); MONO # 0.5 10*3/uL (0.1-1.0); MONO % 7.2 % (3.0-9.0); NEUT % 66.8 % (47.0-73.0); PLATELET COUNT AUTOMATED 252 10*3/uL (130-400); RED BLOOD COUNT 4.83 10*6/uL (4.50-5.90); WHITE BLOOD COUNT 7.5 10*3/uL (4.8-10.8)
[2019-11-20 23:35] LABS: ACT PARTIAL THROMBO TIME 26.2 SECONDS (20.0-32.1); INTERNATIONAL NORM RATIO 0.9 (2.0-3.5)
[2019-11-20 23:40] LABS: ALKALINE PHOSPHATASE 90 U/L (45-117); BUN 16 mg/dl (7-24); CHLORIDE 107 mmol/L (98-107); POTASSIUM 3.7 mmol/L (3.5-5.1); SGOT/AST 10 IU/L (3-35); SGPT/ALT 16 U/L (12-78); SODIUM 138 mmol/L (136-145); TOTAL PROTEIN 6.9 gm/dL (6.4-8.2)
[2019-11-20 23:41] LABS: TROPONIN I 0.018 ng/ml (<0.045)
[2019-11-21 01:15] VITALS: BP 128/75
[2019-11-21 06:16] LABS: BASO # 0.1 10*3/uL (0.0-0.1); BASO % 0.9 % (0.0-1.0); EOS # 0.2 10*3/uL (0.0-0.4); EOS % 3.1 % (1.0-4.0); HEMATOCRIT 39.9 % (42.0-52.0); HEMOGLOBIN 12.4 g/dl (14.0-18.0); LYMPH % 13.7 % (27.0-41.0); MEAN CELL VOLUME 80.8 fl (80.0-94.0); MEAN CORPUSCULAR HGB 25.1 pg (27.0-31.0); MEAN CORPUSCULAR HGB CONC 31.1 g/dl (33.0-37.0); MEAN PLATELET VOLUME 10.5 fl (9.6-12.3); MONO # 0.6 10*3/uL (0.1-1.0); NEUT # 5.2 10*3/uL (2.3-7.9); NEUT % 73.9 % (47.0-73.0); PLATELET COUNT AUTOMATED 251 10*3/uL (130-400); RED BLOOD COUNT 4.94 10*6/uL (4.50-5.90); RED CELL DISTRI WIDTH 15.9 % (0-14.5)
[2019-11-21 06:43] LABS: CHLORIDE 108 mmol/L (98-107); POTASSIUM 3.7 mmol/L (3.5-5.1); SODIUM 141 mmol/L (136-145)
[2019-11-21 06:59] LABS: BUN 15 mg/dl (7-24); CHOLESTEROL 118 mg/dL (<200); CREATININE 0.87 mg/dL (0.70-1.30); HDL CHOLESTEROL 54 mg/dl (40-60); LDL CHOLESTEROL 55 mg/dL (9-159); PHOSPHOROUS 3.4 mg/dL (2.5-4.9); TRIGLYCERIDES 45 mg/dl (<150); VLDL CHOLESTEROL 9 mg/dL (6-40)
[2019-11-21 07:41] LABS: VITAMIN D, 25-HYDROXY 12.3 ng/mL (30-100)
[2019-11-21 08:00] VITALS: BP 131/71
[2019-11-21 12:00] VITALS: BP 113/60
[2019-11-21] MEDS ORDERED: POTASSIUM CHLO20 ME3 PO (13:54)
[2019-11-21 16:00] VITALS: BP 120/62
[2019-11-21 20:00] VITALS: BP 113/64
[2019-11-22] VITALS: BP 124/58
[2019-11-22 08:00] VITALS: BP 125/61
[2019-11-22 12:00] VITALS: BP 138/79
[2019-11-22 16:00] VITALS: BP 141/76
[2019-11-22 20:00] VITALS: BP 128/52
[2019-11-23] VITALS: BP 117/61
[2019-11-23 07:14] LABS: BASO # 0.1 10*3/uL (0.0-0.1); BASO % 0.9 % (0.0-1.0); EOS # 0.3 10*3/uL (0.0-0.4); EOS % 4.5 % (1.0-4.0); HEMATOCRIT 43.9 % (42.0-52.0); HEMOGLOBIN 13.1 g/dl (14.0-18.0); LYMPH # 1.3 10*3/uL (1.3-4.4); LYMPH % 19.5 % (27.0-41.0); MEAN CELL VOLUME 81.9 fl (80.0-94.0); MEAN CORPUSCULAR HGB 24.4 pg (27.0-31.0); MEAN CORPUSCULAR HGB CONC 29.8 g/dl (33.0-37.0); MEAN PLATELET VOLUME 10.8 fl (9.6-12.3); MONO # 0.6 10*3/uL (0.1-1.0); MONO % 8.4 % (3.0-9.0); NEUT # 4.4 10*3/uL (2.3-7.9); NEUT % 66.4 % (47.0-73.0); PLATELET COUNT AUTOMATED 252 10*3/uL (130-400); RED BLOOD COUNT 5.36 10*6/uL (4.50-5.90); RED CELL DISTRI WIDTH 16.2 % (0-14.5); WHITE BLOOD COUNT 6.7 10*3/uL (4.8-10.8)
[2019-11-23 07:48] LABS: BUN 12 mg/dl (7-24); CHLORIDE 104 mmol/L (98-107); CREATININE 0.94 mg/dL (0.70-1.30); POTASSIUM 4.3 mmol/L (3.5-5.1); SODIUM 137 mmol/L (136-145)
[2019-11-23 08:00] VITALS: BP 132/78
[2019-11-23 12:00] VITALS: BP 136/70
[2019-11-23 16:00] VITALS: BP 131/76
[2019-11-23 20:00] VITALS: BP 139/78
[2019-11-24] VITALS (11 sets, daily range): BP systolic 94–135; BP diastolic 40–85
[2019-11-25] VITALS: BP 109/59
[2019-11-25 08:00] VITALS: BP 134/69
[2019-11-25 11:05] LABS: ACID FAST SPEC PROCESSING Tissue Grinding (.)
[2019-11-25 11:05] LABS: ACID FAST SPEC PROCESSING Tissue Grinding (.)
[2019-11-25 11:05] LABS: ACID FAST SPEC PROCESSING Tissue Grinding (.)
[2019-11-25 11:05] LABS: ACID FAST SPEC PROCESSING Tissue Grinding (.)
[2019-11-25 12:00] VITALS: BP 117/60
[2019-11-25 16:00] VITALS: BP 113/72
[2019-11-25 20:00] VITALS: BP 121/75
[2019-11-26] VITALS: BP 136/77
[2019-11-26 06:24] LABS: BASO # 0.1 10*3/uL (0.0-0.1); BASO % 0.6 % (0.0-1.0); EOS # 0.3 10*3/uL (0.0-0.4); EOS % 3.9 % (1.0-4.0); HEMATOCRIT 40.2 % (42.0-52.0); HEMOGLOBIN 12.1 g/dl (14.0-18.0); LYMPH # 1.4 10*3/uL (1.3-4.4); LYMPH % 17.3 % (27.0-41.0); MEAN CELL VOLUME 83.4 fl (80.0-94.0); MEAN CORPUSCULAR HGB 25.1 pg (27.0-31.0); MEAN CORPUSCULAR HGB CONC 30.1 g/dl (33.0-37.0); MEAN PLATELET VOLUME 10.7 fl (9.6-12.3); MONO # 0.8 10*3/uL (0.1-1.0); MONO % 9.9 % (3.0-9.0); NEUT # 5.4 10*3/uL (2.3-7.9); NEUT % 67.9 % (47.0-73.0); PLATELET COUNT AUTOMATED 215 10*3/uL (130-400); RED BLOOD COUNT 4.82 10*6/uL (4.50-5.90)
[2019-11-26 06:51] LABS: BUN 12 mg/dl (7-24); CREATININE 0.81 mg/dL (0.70-1.30)
[2019-11-26 08:00] VITALS: BP 126/58
[2019-11-26 12:00] VITALS: BP 99/72
[2019-11-26 16:00] VITALS: BP 92/41
[2019-11-26 16:06] LABS: ACID FAST SPEC PROCESSING Tissue Grinding (.)
[2019-11-26 20:00] VITALS: BP 125/74
[2019-11-27] VITALS: BP 141/66
[2019-11-27 07:40] VITALS: BP 130/68
[2019-11-27 12:00] VITALS: BP 129/74
[2019-11-27 16:00] VITALS: BP 121/82
[2019-11-27 20:00] VITALS: BP 111/63
[2019-11-28] VITALS: BP 132/82
[2019-11-28 06:20] LABS: BASO # 0.1 10*3/uL (0.0-0.1); BASO % 0.7 % (0.0-1.0); EOS # 0.3 10*3/uL (0.0-0.4); EOS % 4.1 % (1.0-4.0); HEMATOCRIT 39.9 % (42.0-52.0); HEMOGLOBIN 12.1 g/dl (14.0-18.0); LYMPH # 1.8 10*3/uL (1.3-4.4); LYMPH % 23.7 % (27.0-41.0); MEAN CELL VOLUME 81.3 fl (80.0-94.0); MEAN CORPUSCULAR HGB 24.6 pg (27.0-31.0); MEAN CORPUSCULAR HGB CONC 30.3 g/dl (33.0-37.0); MEAN PLATELET VOLUME 10.7 fl (9.6-12.3); MONO # 0.7 10*3/uL (0.1-1.0); MONO % 8.9 % (3.0-9.0); NEUT # 4.7 10*3/uL (2.3-7.9); NEUT % 62.3 % (47.0-73.0); PLATELET COUNT AUTOMATED 243 10*3/uL (130-400); RED BLOOD COUNT 4.91 10*6/uL (4.50-5.90); RED CELL DISTRI WIDTH 15.8 % (0-14.5); WHITE BLOOD COUNT 7.6 10*3/uL (4.8-10.8)
[2019-11-28 06:41] LABS: BUN 14 mg/dl (7-24); CHLORIDE 107 mmol/L (98-107); CREATININE 0.82 mg/dL (0.70-1.30); POTASSIUM 4.1 mmol/L (3.5-5.1); SODIUM 136 mmol/L (136-145)
[2019-11-28 08:00] VITALS: BP 144/70
[2019-11-28 12:00] VITALS: BP 123/75
[2019-11-28 16:00] VITALS: BP 131/73
[2019-11-28 20:00] VITALS: BP 130/62
[2019-11-29] VITALS: BP 102/59
[2019-11-29 08:00] VITALS: BP 118/58
[2019-11-29 12:00] VITALS: BP 117/60
[2019-11-29] MEDS ORDERED: CEFEPIME2 GM/100 M IV (13:27)
[2019-11-29] MEDS ORDERED: VANCOMYCIN IV (13:27)
[2019-11-29] MEDS ORDERED: VITAMIN D3125 MC1 PO (13:27)
[2019-11-29] MEDS ORDERED: XARELTO10 MG PO (13:31)
== END 2019-11-29 15:08 | disposition other institution (70) | DRG 711 ==
LOC: ED 22:06 → EDHOLD 11-21 00:51 → 4E 11-21 00:51 → 5E 11-21 00:59 → 4E 11-21 19:28
PROVIDERS: Internal Medicine; Physician Assistant; Podiatrist; Podiatrist Foot & Ankle Surgery; Student in an Organized Health Care Education/Training Program; ADMIT Internal Medicine
PROC: 0QBP0ZZ Excision of Left Metatarsal, Open Approach (ICD-10-PCS; principal; 2019-11-24)
PROC: 0QBM0ZZ Excision of Left Tarsal, Open Approach (ICD-10-PCS; 2019-11-24)
PROC: 0QBG0ZZ Excision of Right Tibia, Open Approach (ICD-10-PCS; 2019-11-24)
PROC: 0QBN0ZZ Excision of Right Metatarsal, Open Approach (ICD-10-PCS; 2019-11-24)
PROC: 0LSN0ZZ Reposition Right Lower Leg Tendon, Open Approach (ICD-10-PCS; 2019-11-24)
PROC: 0HRNXK3 Replacement of Left Foot Skin with Nonautologous Tissue Substitute, Full Thickness, External Approach (ICD-10-PCS; 2019-11-24)
PROC: 0HRMXK3 Replacement of Right Foot Skin with Nonautologous Tissue Substitute, Full Thickness, External Approach (ICD-10-PCS; 2019-11-24)
PROC: 02HV33Z Insertion of Infusion Device into Superior Vena Cava, Percutaneous Approach (ICD-10-PCS; 2019-11-29)
PROC: B548ZZA Ultrasonography of Superior Vena Cava, Guidance (ICD-10-PCS; 2019-11-29)
DX: T81.49XA Infection following a procedure, other surgical site, initial encounter (principal); E11.69 Type 2 diabetes mellitus with other specified complication; E11.621 Type 2 diabetes mellitus with foot ulcer; E44.0 Moderate protein-calorie malnutrition; I50.9 Heart failure, unspecified; I87.2 Venous insufficiency (chronic) (peripheral); E66.9 Obesity, unspecified; L08.9 Local infection of the skin and subcutaneous tissue, unspecified; D50.9 Iron deficiency anemia, unspecified; E11.51 Type 2 diabetes mellitus with diabetic peripheral angiopathy without gangrene; E11.65 Type 2 diabetes mellitus with hyperglycemia; E55.9 Vitamin D deficiency, unspecified; L03.116 Cellulitis of left lower limb; L03.115 Cellulitis of right lower limb; L97.529 Non-pressure chronic ulcer of other part of left foot with unspecified severity; L97.519 Non-pressure chronic ulcer of other part of right foot with unspecified severity; M86.172 Other acute osteomyelitis, left ankle and foot; M86.171 Other acute osteomyelitis, right ankle and foot; R00.0 Tachycardia, unspecified; Z88.8 Allergy status to other drugs, medicaments and biological substances; Z89.412 Acquired absence of left great toe; Z87.891 Personal history of nicotine dependence; Z82.49 Family history of ischemic heart disease and other diseases of the circulatory system; Z80.41 Family history of malignant neoplasm of ovary; Z68.38 Body mass index [BMI] 38.0-38.9, adult; I73.9 Peripheral vascular disease, unspecified

== ENCOUNTER 2020-06-24 20:53 | Inpatient (IN) | payer OTHER ==
[~2020-06-24] VITALS: Ht 185.4 cm; Wt 125.3 kg
[~2020-06-24 20:53] MED LIST changes: +ALDACTONE25 MG PO; +CEFEPIME2 GM/100 M IV; +COREG12.5 M1 PO; +KLOR-CON M2020 ME1 PO; +LOSARTAN POTASS25 M1 PO; +POTASSIUM CHLO20 ME3 PO; +VANCOMYCIN IV; +VITAMIN D3125 MC1 PO; +VITAMIN D350 MC2 PO; +XARELTO10 MG PO
[2020-06-24 20:59] VITALS: BP 138/88
--- NOTE | 2020-06-24 21:00 | NUR ---
GAVE PT. WARM BLANKET AND A PILLOW.
[2020-06-24 21:21] LABS: BASO % 0.4 % (0.0-1.0); EOS # 0.4 10*3/uL (0.0-0.4); EOS % 3.8 % (1.0-4.0); HEMATOCRIT 35.2 % (42.0-52.0); LYMPH # 2.5 10*3/uL (1.3-4.4); LYMPH % 26.8 % (27.0-41.0); MEAN CELL VOLUME 78.4 fl (80.0-94.0); MEAN CORPUSCULAR HGB 22.7 pg (27.0-31.0); MEAN PLATELET VOLUME 9.6 fl (9.6-12.3); MONO # 0.5 10*3/uL (0.1-1.0); MONO % 4.9 % (3.0-9.0); NEUT # 5.9 10*3/uL (2.3-7.9); NEUT % 63.8 % (47.0-73.0); PLATELET COUNT AUTOMATED 343 10*3/uL (130-400); RED BLOOD COUNT 4.49 10*6/uL (4.50-5.90); RED CELL DISTRI WIDTH 17.1 % (0-14.5); WHITE BLOOD COUNT 9.2 10*3/uL (4.8-10.8)
[2020-06-24 21:25] LABS: BILIRUBIN Negative (Negative); BLOOD Negative (Negative); CLARITY Clear (Clear); COLOR Yellow (Yellow); GLUCOSE Negative (Negative); KETONE Negative (Negative); LEUKO ESTERASE Negative (Negative); NITRITE Negative (Negative); PH 5.5 (4.5-8.0)
[2020-06-24 21:38] LABS: ALBUMIN 2.5 gm/dl (3.1-4.5); ALKALINE PHOSPHATASE 79 U/L (45-117); BUN 11 mg/dl (7-24); CHLORIDE 107 mmol/L (98-107); CREATININE 0.79 mg/dL (0.70-1.30); LIPASE 63 U/L (73-393); SGOT/AST 11 IU/L (3-35); SGPT/ALT 16 U/L (12-78); SODIUM 138 mmol/L (136-145); TOTAL PROTEIN 7.7 gm/dL (6.4-8.2)
[2020-06-24 21:41] LABS: TROPONIN I 0.053 ng/ml (<0.045)
[2020-06-24 21:51] LABS: BACTERIA TRACE; CALCIUM OXALATE CRYSTALS 2+; MUCOUS TRACE; RBC 0-2 rbc/hpf (0-2); WBC 0-2 wbc/hpf (0-5)
--- NOTE | 2020-06-24 22:00 | NUR ---
PT. RESTING IN BED WITH EYES CLOSED. RR EASY AND NONLABORED. CALL LIGHT IN REACH. WILL CONT TO MONITOR.
[2020-06-24 22:51] VITALS: BP 120/61
--- NOTE | 2020-06-24 23:00 | NUR ---
PT. RESTING IN BED WITH EYES CLOSED. CALL LIGHT IN REACH. APPEARS TO BE IN NO DISTRESS. RR EASY AND NONLABORED. WILL CONT TO MONITOR.
[2020-06-25] VITALS (8 sets, daily range): BP systolic 103–128; BP diastolic 48–88
--- NOTE | 2020-06-25 | NUR ---
SLEEPING. NO DISTRESS NOTED. RESPIRATIONS EASY. CALL LIGHT WITHIN REACH.
--- NOTE | 2020-06-25 00:51 | NUR ---
PT. RESTING IN BED, RR EASY AND NONLABORED. CALL LIGHT IN REACH. WILL CONT TO MONITOR.
--- NOTE | 2020-06-25 01:14 | NUR ---
PT. RESTING IN BED WITH EYES CLOSED. CALL LIGHT IN REACH. RR EASY AND NON LABORED. WILL CONT TO MONITOR.
--- NOTE | 2020-06-25 02:18 | NUR ---
PT. RESTING IN BED, NO DISTRESS NOTED. RR EASY AND NONLABORED. CALL LIGHT IN REACH. WILL CONT TO MONITOR.
[2020-06-25 03:07] LABS: BASO # 0.1 10*3/uL (0.0-0.1); BASO % 0.5 % (0.0-1.0); EOS # 0.4 10*3/uL (0.0-0.4); EOS % 4.3 % (1.0-4.0); LYMPH # 2.6 10*3/uL (1.3-4.4); LYMPH % 26.1 % (27.0-41.0); MEAN CELL VOLUME 79.2 fl (80.0-94.0); MEAN CORPUSCULAR HGB 22.9 pg (27.0-31.0); MEAN CORPUSCULAR HGB CONC 28.9 g/dl (33.0-37.0); MONO # 0.6 10*3/uL (0.1-1.0); MONO % 5.5 % (3.0-9.0); NEUT # 6.3 10*3/uL (2.3-7.9); NEUT % 63.1 % (47.0-73.0); PLATELET COUNT AUTOMATED 333 10*3/uL (130-400); RED BLOOD COUNT 4.42 10*6/uL (4.50-5.90); RED CELL DISTRI WIDTH 17.2 % (0-14.5)
[2020-06-25 03:17] LABS: INTERNATIONAL NORM RATIO 1.1 (2.0-3.5)
[2020-06-25 03:23] LABS: ALBUMIN 2.4 gm/dl (3.1-4.5); ALKALINE PHOSPHATASE 79 U/L (45-117); BUN 10 mg/dl (7-24); CHLORIDE 108 mmol/L (98-107); CREATININE 0.78 mg/dL (0.70-1.30); POTASSIUM 3.8 mmol/L (3.5-5.1); SGOT/AST 12 IU/L (3-35); SGPT/ALT 12 U/L (12-78); SODIUM 140 mmol/L (136-145); TOTAL PROTEIN 7.5 gm/dL (6.4-8.2)
--- NOTE | 2020-06-25 03:53 | NUR ---
PT. RESTING IN BED WITH EYES CLOSED. CALL LIGHT IN REACH. RR EASY AND NONLABORED. WILL CONT TO MONITOR.
--- NOTE | 2020-06-25 04:57 | NUR ---
PT. RESTING IN BED WITH EYES CLOSED. GAVE PT. ANOTHER WARM BLANKET. CALL LIGHT IN REACH. RR EASY AND NONLABORED. WILL CONT TO MONITOR.
--- NOTE | 2020-06-25 06:49 | NUR ---
PT. RESTING IN BED WITH EYES CLOSED. CALL LIGHT IN REACH. APPEARS TO BE IN NO DISTRESS AT THIS TIME. RR EASY AND NONLABORED. WILL CONT TO MONITOR.
--- NOTE | 2020-06-25 09:00 | NUR ---
DR SCHRADER CONSULTED FOR PATIENT.
[2020-06-25] MEDS ORDERED: ATORVASTATIN CA20 M1 PO (10:30)
[2020-06-25] MEDS ORDERED: CARVEDILOL12.5 MG PO (10:30)
--- NOTE | 2020-06-25 13:50 | NUR ---
A 54, admitted to 4E, under the services of JAMILA Segura DO with a diagnosis of INFECTION, WOUNDS, ELEVATED TROPONIN. Chief complaint is FOOT PAIN. Patient arrived via OTHER from ER. Monitor applied. Initial assessment completed. Vital signs taken and recorded. JAMILA SEGURA DO notified of admission to the unit. Orders received. See assessment for past medical history, medications and allergies. Patient and/or family oriented to unit. [facility] ROOM 402-2 visitation policy reviewed. Clothing/patient valuable form completed. SONJA MALDONADO
--- NOTE | 2020-06-25 13:55 | NUR ---
PATIENT TAKEN TO 4TH FLOOR AT THIS TIME BY THIS NURSE AND ROXANA CARDONA. NO CHANGE IN PATIENT STATUS. REPORT GIVEN TO SONJA HERNANDEZ.
--- NOTE | 2020-06-25 14:49 | NUR ---
CALL PLACED TO PODIATRY ADVISED OF CONSULT, SHE VERSED PATIENT HAS BEEN SEEN ALSO TILD NOT TO REMOVE DRESSINGS, THAT PODIATRY WILL TAKE CARE OF.
[2020-06-25] MEDS ORDERED: ASPIRIN CHEWABL81 MG PO (15:03)
--- NOTE | 2020-06-25 17:30 | NUR ---
DR VELEZ CALLED WITH +BC CALLED FROM LAB
--- NOTE | 2020-06-25 20:03 | NUR ---
24 HR chart check completed.
--- NOTE | 2020-06-25 21:00 | NUR ---
RESTING IN BED. RESPIRATIONS EASY. LUNGS DIMINISHED, CLEAR. PULSE OX 93% RA. DRESSINGS CHANGED TO BILATERAL FEET PER ORDER. CALL LIGHT WITHIN REACH. NO VOICED COMPLAINTS
--- NOTE | 2020-06-25 22:00 | NUR ---
HOME MEDS NOT ORDERED. UP TO DATE IN MED-REC
--- NOTE | 2020-06-25 23:05 | NUR ---
MEDICATED WITH NORCO PER PRN ORDER FOR COMPLAINTS OF RIGHT FOOT PAIN RATING A 6. CALL LIGHT WITHIN REACH. WILL MONITOR
--- NOTE | 2020-06-25 23:45 | NUR ---
MEDS APPEAR EFFECTIVE. RESTING WITH EYES CLOSED. RESPIRATIONS EASY. CALL LIGHT WITHIN REACH
[2020-06-26] VITALS: BP 111/66
--- NOTE | 2020-06-26 | NUR ---
SLEEPING. NO DISTRESS NOTED. RESPIRATIONS EASY. VSS. CALL LIGHT WITHIN REACH
--- NOTE | 2020-06-26 05:40 | NUR ---
UPON AWAKENING FOR AM MEDS, C/O PAIN TO RIGHT FOOT RATING A 6. CALL LIGHT WITHIN REACH. WILL MONITOR FOR EFFECTIVENESS
--- NOTE | 2020-06-26 06:30 | NUR ---
MEDS APPEAR EFFECTIVE. SLEEPING. RESPIRATIONS EASY. CALL LIGHT WITHIN REACH
--- NOTE | 2020-06-26 08:30 | NUR ---
DR ROBLEDO NOTIFIED OF CRITICAL VANCO TROUGH 33.3. NOTIFIED PHARMACIST BILL ALSO AT THIS TIME.
--- NOTE | 2020-06-26 09:00 | NUR ---
It Infrastructure Specialist in to talk to patient. Patient states lives at home with ex . There are 2 steps in the home. Physician: akira sevilla [facility]acy: [facility] Home health services: none Patient's level of ADLs: INDEPENDENT Patient has working utilities: all working DME: Follow-up physician's appointment after d/c: will be made by hospitalist nurse director upon discharge Does patient want to access PORTAL?: n Discharge plan discussed with patient, he states he lives at home with his ex . he states he has a walker but is unable to use it. he is independent in adls. discussed with him a short term penitentiary for rehab and possibly iv antibiotics prior to returning home. he declined, stated he would be returning home. also discussed [facility] and educated on the services they provide. he stated he only wanted [facility] if he needed home iv antibiotics and he used [facility] in the past and would like them again. case management will notify [facility] if patient is discharged with iv antibiotics. CARMENCITA BERNAL
[2020-06-26 12:00] VITALS: BP 114/69
--- NOTE | 2020-06-26 12:12 | NUR ---
PT STILL OFF FLOOR AND HASNT RETURNED FROM MRI.
--- NOTE | 2020-06-26 13:12 | NUR ---
PT RETURNED FROM [facility]. MEDICATED PT WITH 1000 AM SCHEDULED MEDS. NORCO 5/325 MG GIVEN FOR C/O PAIN,04/17.
[2020-06-26 14:00] VITALS: BP 114/69
--- NOTE | 2020-06-26 15:00 | NUR ---
NORCO 5/325 MG GIVEN FOR C/O PAIN,03/17.
[2020-06-26 16:00] VITALS: BP 112/66
[2020-06-26 20:00] VITALS: BP 104/70; BP 99/61
--- NOTE | 2020-06-26 20:00 | NUR ---
SITTING AT BEDSIDE WITH NO ACUTE DISTRESS NOTED. RESPIRATIONS EASY. LUNGS DIMINISHED WITH FAINT EXP WHEEZES. PULSE OX 93% RA. CLAIMS PROD COUGH. TRACE BLE EDEMA. BILATERAL FOOT WOUNDS DRESSED PER ORDER. CALL LIGHT WITHIN REACH. NO VOICED COMPLAINTS
--- NOTE | 2020-06-26 20:02 | NUR ---
24 HR chart check completed.
--- NOTE | 2020-06-26 21:00 | NUR ---
MEDICATED WITH NORCO PER PRN ORDER FOR COMPLAINTS OF RIGHT FOOT PAIN RATING A 6. CALL LIGHT WITHIN REACH. WILL MONITOR
--- NOTE | 2020-06-26 21:45 | NUR ---
STATES EARLIER MEDS EFFECTIVE. CALL LIGHT WITHIN REACH. NO FURTHER VOICED COMPLAINTS
--- NOTE | 2020-06-26 22:00 | NUR ---
REFUSED 220 COREG.
[2020-06-27] VITALS: BP 108/78
--- NOTE | 2020-06-27 | NUR ---
SLEEPING. NO DISTRESS NOTED. RESPIRATIONS EASY. VSS. CALL LIGHT WITHIN REACH
--- NOTE | 2020-06-27 05:34 | NUR ---
MEDCIATED WITH NORCO PER PRN ORDER FOR COMPLAINTS OF RIGHT FOOT PAIN RATING A 6. WILL MONITOR
--- NOTE | 2020-06-27 06:10 | NUR ---
EARLIER NORCO EFFECTIVE. SLEEPING. RESPIRATIONS EASY. CALL LIGHT WITHIN REACH
--- NOTE | 2020-06-27 06:45 | NUR ---
DR GALLEGO CONTACTED AND INFORMED OF + BC
[2020-06-27 08:00] VITALS: BP 120/80
[2020-06-27 08:11] LABS: BUN 13 mg/dl (7-24); CHLORIDE 105 mmol/L (98-107); CREATININE 0.92 mg/dL (0.70-1.30); SODIUM 138 mmol/L (136-145)
--- NOTE | 2020-06-27 09:00 | NUR ---
case management visits with patient, discussed with him having a surgical revison of foot tomorrow and possibly needed to be discharged to a short term skilled for iv antibiotics and other treatment. patient stated he didn't want to go to a SNF. explained to him that he may not be able to care for himself with all of the treatment he may have. patient continues to decline. case management will follow and talk with patient more regarding SNF
--- NOTE | 2020-06-27 09:59 | NUR ---
NOTFIED OF CONSULT
[2020-06-27 12:00] VITALS: BP 120/70
[2020-06-27 16:00] VITALS: BP 120/76
[2020-06-27 20:00] VITALS: BP 109/63
--- NOTE | 2020-06-27 20:50 | NUR ---
PRN NORCO GIVEN FOR PT COMPLAINTS OF PAIN IN THE LOWER LEGS RATING IT 7/10. CALL LIGHT WITHIN REACH, WILL MONITOR
--- NOTE | 2020-06-27 21:30 | NUR ---
PRN MEDICATION EFFECTIVE, PER PT
[2020-06-28] VITALS (9 sets, daily range): BP systolic 95–134; BP diastolic 48–79
--- NOTE | 2020-06-28 02:36 | NUR ---
24 HR chart check completed.
--- NOTE | 2020-06-28 03:36 | NUR ---
PATIENT SLEEPING, NO DISTRESS NOTED. BREATHING IS EASY AND REGULAR ON ROOM AIR. CALL LIGHT WITHIN REACH, WILL MONITOR
--- NOTE | 2020-06-28 07:15 | NUR ---
NOTIFIED DR. DOUGLAS OF PATIENTS 2ND SET OF POSITIVE BLOOD CULTURES FROM THE . NOTIFIED HIM THE PATIENTS 1ST SET FROM THE IS GROWING STAPH HOMINUS-HOMINUS AND THAT HE HAD REPEAT BLOOD CLTURES ON THE THAT HAVE NOT YET RESULTED
[2020-06-28 07:29] LABS: BASO # 0.1 10*3/uL (0.0-0.1); BASO % 0.6 % (0.0-1.0); EOS # 0.4 10*3/uL (0.0-0.4); EOS % 4.9 % (1.0-4.0); HEMATOCRIT 35.5 % (42.0-52.0); LYMPH # 2.8 10*3/uL (1.3-4.4); LYMPH % 33.6 % (27.0-41.0); MEAN CELL VOLUME 79.4 fl (80.0-94.0); MEAN CORPUSCULAR HGB 22.8 pg (27.0-31.0); MEAN CORPUSCULAR HGB CONC 28.7 g/dl (33.0-37.0); MONO # 0.5 10*3/uL (0.1-1.0); MONO % 5.7 % (3.0-9.0); NEUT # 4.6 10*3/uL (2.3-7.9); PLATELET COUNT AUTOMATED 352 10*3/uL (130-400); RED BLOOD COUNT 4.47 10*6/uL (4.50-5.90); RED CELL DISTRI WIDTH 17.4 % (0-14.5); WHITE BLOOD COUNT 8.4 10*3/uL (4.8-10.8)
[2020-06-28 07:46] LABS: BUN 14 mg/dl (7-24); CHLORIDE 107 mmol/L (98-107); CREATININE 0.96 mg/dL (0.70-1.30); POTASSIUM 4.1 mmol/L (3.5-5.1); SODIUM 138 mmol/L (136-145)
--- NOTE | 2020-06-28 07:50 | NUR ---
CALLED DR. DALTON AND NOTIFIED HER OF PT'S VANC TROUGH OF 26.6. AWAITING CALL BACK.
--- NOTE | 2020-06-28 08:05 | NUR ---
24 HR chart check completed.
--- NOTE | 2020-06-28 09:00 | NUR ---
case management unable to visit with patient at this time, patient is in surgery. will visit at another time
--- NOTE | 2020-06-28 13:39 | NUR ---
PRN MORPHINE WAS GIVEN FOR A PAIN LEVEL OF 10/10 IN BILATERAL FEET. WILL REASSESS EFFECTIVENESS.
--- NOTE | 2020-06-28 14:09 | NUR ---
PT STATED THAT PRN MORPHINE HELPED A LITTLE BIT. PT'S BP WAS 96/48 MANUALLY. I NOTIFIED HIM THAT HIS BP NEEDED TO COME UP A LITTLE BIT MORE AND IT WOULD BE RECHECKED.
--- NOTE | 2020-06-28 15:51 | NUR ---
PATIENT MEDICATED WITH MORPHINE FOR C/O BL FOOT PAIN 06/17. WILL MONITOR
--- NOTE | 2020-06-28 16:53 | NUR ---
MADE AWARE THAT PATINET PAIN IS OVER 10 AT THIS TIME. MORPHINE IS INEFFECTIVE. STATED HE WILL ORDER SOMETHING
--- NOTE | 2020-06-28 17:25 | NUR ---
PATIENT GIVEN IV MORPHINE X1 DOSE. WILL MONITOR
--- NOTE | 2020-06-28 18:25 | NUR ---
PATIENT STATED PAIN WAS BETTER.
--- NOTE | 2020-06-28 19:28 | NUR ---
PATIENT MEDICATED WITH NORCO FOR C/O 6/10 PAIN. WILL MONITOR
--- NOTE | 2020-06-28 22:17 | NUR ---
PATIENT MEDICATED WITH MORPHINE FOR C/O 8/ PAIN. WILL MONITOR
[2020-06-29] VITALS: BP 113/58
--- NOTE | 2020-06-29 02:52 | NUR ---
PATIENT MEDICATED WITH MORPHINE FOR C/O BL FOOT PAIN 04/17. WILL MONITOR
--- NOTE | 2020-06-29 06:31 | NUR ---
PATIENT MEDICATED WITH NORCO FOR C/O 9/10 PAIN. WILL MONITOR
[2020-06-29 07:21] LABS: BASO # 0.1 10*3/uL (0.0-0.1); BASO % 0.6 % (0.0-1.0); EOS # 0.3 10*3/uL (0.0-0.4); EOS % 3.1 % (1.0-4.0); HEMATOCRIT 31.9 % (42.0-52.0); LYMPH # 2.6 10*3/uL (1.3-4.4); LYMPH % 25.9 % (27.0-41.0); MEAN CELL VOLUME 80.4 fl (80.0-94.0); MEAN CORPUSCULAR HGB 23.2 pg (27.0-31.0); MEAN CORPUSCULAR HGB CONC 28.8 g/dl (33.0-37.0); MEAN PLATELET VOLUME 10.1 fl (9.6-12.3); MONO # 0.7 10*3/uL (0.1-1.0); MONO % 7.2 % (3.0-9.0); NEUT # 6.4 10*3/uL (2.3-7.9); NEUT % 62.9 % (47.0-73.0); PLATELET COUNT AUTOMATED 304 10*3/uL (130-400); RED BLOOD COUNT 3.97 10*6/uL (4.50-5.90); RED CELL DISTRI WIDTH 17.4 % (0-14.5); WHITE BLOOD COUNT 10.2 10*3/uL (4.8-10.8)
[2020-06-29 07:46] LABS: BUN 12 mg/dl (7-24); CHLORIDE 106 mmol/L (98-107); CREATININE 0.89 mg/dL (0.70-1.30); SODIUM 135 mmol/L (136-145)
[2020-06-29 08:00] VITALS: BP 93/52
--- NOTE | 2020-06-29 08:32 | NUR ---
PT C/O OF RIGHT FOOT PAIN S/P SURGERY, PAIN RATING 6/10 PRN MORPHINE GIVEN
--- NOTE | 2020-06-29 09:00 | NUR ---
Occupational Therapy evaluation completed on 4 with full eval to follow. Recommend SNf upon d/c, but patient refuses. Recommend OT per pOC and home with home health SN,OT,PT, w/c, sliding board, drop arm bedside commode,ramp Thank you. Calli Nair OTR/l
--- NOTE | 2020-06-29 09:00 | NUR ---
case management visits with patient, again discussed with him rehabs recommendation for him to go to a short term snf for rehab prior to returning home. patient became angry and stated he didn't want to talk about a jail anymore, that he wasn't going to one he was returning home. case management will follow for any home needs
--- NOTE | 2020-06-29 09:03 | NUR ---
PER PT MORPHINE WAS EFFECTIVE FOR PAIN, PT EATING BREAKFAST AT THIS TIME
--- NOTE | 2020-06-29 09:05 | NUR ---
PHYSICAL THERAPY Physical Therapy evaluation completed on 4th floor with full evaluation to follow. Recommend physical therapy per plan of care and SNF upon discharge. Pt states he will go home has WC recomend rampy entry or ambulance transport home due to BLE NWB, will need slide baord drop arm commode as well as 24 hour care as well as full HH services discussed at [facility]. Thank you for this referral. Solange Piper PT
[2020-06-29 10:00] VITALS: BP 110/47
[2020-06-29 11:09] LABS: ACID FAST SPEC PROCESSING Tissue Grinding (.)
[2020-06-29 11:09] LABS: ACID FAST SPEC PROCESSING Tissue Grinding (.)
[2020-06-29 11:09] LABS: ACID FAST SPEC PROCESSING Tissue Grinding (.)
[2020-06-29 12:00] VITALS: BP 115/52
--- NOTE | 2020-06-29 12:00 | NUR ---
NEW IV STARTED IN RIGHT AC, 20 LOIS WITH GOOD BLOOD RETURN PT TOLERATED WELL
--- NOTE | 2020-06-29 14:30 | NUR ---
PT C/O OF RIGHT FOOT PAIN RATING 4/10 PRN NORCO GIVEN FOR PAIN
--- NOTE | 2020-06-29 15:00 | NUR ---
PER PT NORCO WAS EFFECTIVE
[2020-06-29 16:00] VITALS: BP 112/77
[2020-06-29 20:00] VITALS: BP 95/47
--- NOTE | 2020-06-29 20:00 | NUR ---
NO OVERT DISTRESS NOTED. PATIENT IS RESTING QUIETLY WITH EYES CLOSED. RESP ARE EASY AND REGULAR. BED LOCKED IN LOWEST POSITION, CALL LIGHT WIHTIN REACH
[2020-06-30] VITALS: BP 106/49
--- NOTE | 2020-06-30 | NUR ---
Hep Lock discontinued, RAN. Site symptomatic, PULLED OUT. Pressure applied. Sterile dressing applied. PIETER NYE
--- NOTE | 2020-06-30 | NUR ---
IV started right forearm with #20 protective cath after 0 attempts. Site prepped with Chloroprep. Sterile dressing applied. Patient tolerated procedure well. PIETER NYE
--- NOTE | 2020-06-30 00:06 | NUR ---
PATIENT MEDICATED WITH MORPHINE FOR C/O 7/10 PAIN TO BLE. WILL MONITOR
[2020-06-30 07:07] LABS: BASO # 0.1 10*3/uL (0.0-0.1); BASO % 0.6 % (0.0-1.0); EOS # 0.4 10*3/uL (0.0-0.4); EOS % 3.9 % (1.0-4.0); HEMATOCRIT 32.7 % (42.0-52.0); LYMPH # 2.6 10*3/uL (1.3-4.4); LYMPH % 26.4 % (27.0-41.0); MEAN CELL VOLUME 81.1 fl (80.0-94.0); MEAN CORPUSCULAR HGB 23.3 pg (27.0-31.0); MEAN CORPUSCULAR HGB CONC 28.7 g/dl (33.0-37.0); MONO # 0.7 10*3/uL (0.1-1.0); MONO % 7.4 % (3.0-9.0); NEUT # 6.1 10*3/uL (2.3-7.9); NEUT % 61.3 % (47.0-73.0); PLATELET COUNT AUTOMATED 315 10*3/uL (130-400); RED BLOOD COUNT 4.03 10*6/uL (4.50-5.90); RED CELL DISTRI WIDTH 17.5 % (0-14.5); WHITE BLOOD COUNT 9.9 10*3/uL (4.8-10.8)
[2020-06-30 07:35] LABS: BUN 16 mg/dl (7-24); CHLORIDE 105 mmol/L (98-107); CREATININE 0.92 mg/dL (0.70-1.30); POTASSIUM 4.1 mmol/L (3.5-5.1); SODIUM 137 mmol/L (136-145)
--- NOTE | 2020-06-30 07:40 | NUR ---
PHYSICAL THERAPY Patient seen this am 1;1 for therapy visit and was supine in bed upon therapist arrival. Patient identified by name / and joined by OT clinical medical assistant for observation this session. Patient reports no c/o's pain since receiving morning pain MEDS and is NWB on B LE's. Patient educated on importance of NWB status compliance and voiced his understanding prior to attempting scooting transfer to w/c. Patient performed sliding / scooting transfer, rear facing, backward transfer from bed to w/c with use of B UE support and was 100% compliant with B LE, NWB status. Patient able to hold his legs up while self propeling w/c with B arms across room to bathroom, completing scooting / sliding transfer from w/c to toilet, with removal of w/c armrest, demonstrating 75% NWB compliance B LE. Patient completed all transfers this session SBA and returned to supine in bed voicing no new c/o's. Patient remained in bed with call light, tray table and telephone awaiting breakfast. Will continue per POC as tolerated, total treatment time 16 minutes. Fuad Shoemaker, LAST CHALKER
--- NOTE | 2020-06-30 07:55 | NUR ---
OT NOTE Pt was seen this A.M. 1:1 for 20 minute OT session. Upon arrival pt was supine in bed. Pt identified by name and and had no complaints at this time. Pt was able to self recall and verbalize NWB to BLE's. Pt transferred from bed to w/c while the chair was perpendicular to the bed by back "scooting" with SBA and maintaining 100% NWB to BLE's. Pt then self managed w/c to the bathroom while maintaining NWB to BLE's. Lateral scoot from the w/c <> standard commode with SBA, pt maintained 75% compliance with NWB to BLE's. Educated pt on drop arm bedside commode and pt refused reporting that he wants to use the standard commode. Pt then self managed w/c back to the EOB where he completed lateral scoot with SBA while maintaining aprox 75% compliance. Pt was left supine in bed with call light in hand, tray table in place, and bed alarm activated for safety. Continue with rec D/C plan to SNF. AMIRA Calvo/Brielle
[2020-06-30 08:00] VITALS: BP 93/52
--- NOTE | 2020-06-30 09:00 | NUR ---
case management visits with patient, again discussed a short term shelter vs home health. he stated he didn't want either of them, he stated he would be returnin ghome and is able to care for himself. case management will follow
[2020-06-30 12:00] VITALS: BP 100/58
--- NOTE | 2020-06-30 13:32 | NUR ---
Nutritional Support Services Note: Appetite is good for meals, he is eating 100% of all meals. Cellulitis noted to right lower extremity. Regular diet as ordered. Continue to encourage 100% of meals. Ht.6'1 Wt.[id number]# Elaina Saxena
[2020-06-30 16:00] VITALS: BP 105/58
[2020-06-30 20:00] VITALS: BP 100/47
--- NOTE | 2020-06-30 20:00 | NUR ---
PATIENT VOICED NO COMPLAINTS AT THIS TIME. NO OVERT DISTRESS NOTED, RESP ARE EASY AND REGULAR. BED IS LOCKED IN LOWEST POSITION. CALL LIGHT WITHIN REACH
[2020-06-30 23:14] VITALS: BP 119/69
[2020-07-01 06:08] LABS: BASO # 0.1 10*3/uL (0.0-0.1); BASO % 0.8 % (0.0-1.0); EOS # 0.4 10*3/uL (0.0-0.4); EOS % 3.6 % (1.0-4.0); HEMATOCRIT 33.5 % (42.0-52.0); LYMPH # 2.9 10*3/uL (1.3-4.4); LYMPH % 29.8 % (27.0-41.0); MEAN CELL VOLUME 80.7 fl (80.0-94.0); MEAN CORPUSCULAR HGB 22.9 pg (27.0-31.0); MEAN CORPUSCULAR HGB CONC 28.4 g/dl (33.0-37.0); MEAN PLATELET VOLUME 10.2 fl (9.6-12.3); MONO # 0.7 10*3/uL (0.1-1.0); MONO % 6.8 % (3.0-9.0); NEUT # 5.6 10*3/uL (2.3-7.9); NEUT % 58.6 % (47.0-73.0); PLATELET COUNT AUTOMATED 351 10*3/uL (130-400); RED BLOOD COUNT 4.15 10*6/uL (4.50-5.90); RED CELL DISTRI WIDTH 17.4 % (0-14.5); WHITE BLOOD COUNT 9.6 10*3/uL (4.8-10.8)
--- NOTE | 2020-07-01 07:21 | NUR ---
per podietry pt is agreeing to home health
[2020-07-01 08:00] VITALS: BP 109/64
[2020-07-01 12:00] VITALS: BP 110/68
[2020-07-01 16:00] VITALS: BP 118/68
--- NOTE | 2020-07-01 17:21 | NUR ---
PT AA&OX3, NO COMPLAINTS AT THIS TIME ALL NEEDS HAVE BEEN MET
[2020-07-01 20:00] VITALS: BP 114/61
--- NOTE | 2020-07-01 20:00 | NUR ---
PATIENT VOICED NO COMPLAINTS. NO OVERT DISTRESS NOTED, RESP ARE EASY AND REGULAR. CALL LIGHT WITHIN REACH
[2020-07-02] VITALS: BP 102/60
[2020-07-02 07:29] LABS: BASO # 0.1 10*3/uL (0.0-0.1); BASO % 0.8 % (0.0-1.0); EOS # 0.4 10*3/uL (0.0-0.4); EOS % 4.3 % (1.0-4.0); HEMATOCRIT 36.3 % (42.0-52.0); LYMPH # 3.2 10*3/uL (1.3-4.4); LYMPH % 31.5 % (27.0-41.0); MEAN CELL VOLUME 80.8 fl (80.0-94.0); MEAN CORPUSCULAR HGB 22.7 pg (27.0-31.0); MEAN CORPUSCULAR HGB CONC 28.1 g/dl (33.0-37.0); MEAN PLATELET VOLUME 9.8 fl (9.6-12.3); MONO # 0.6 10*3/uL (0.1-1.0); MONO % 6.3 % (3.0-9.0); NEUT # 5.8 10*3/uL (2.3-7.9); NEUT % 56.7 % (47.0-73.0); PLATELET COUNT AUTOMATED 412 10*3/uL (130-400); RED BLOOD COUNT 4.49 10*6/uL (4.50-5.90); RED CELL DISTRI WIDTH 17.2 % (0-14.5); WHITE BLOOD COUNT 10.2 10*3/uL (4.8-10.8)
[2020-07-02 07:41] LABS: BUN 21 mg/dl (7-24); CHLORIDE 104 mmol/L (98-107); POTASSIUM 4.8 mmol/L (3.5-5.1); SODIUM 137 mmol/L (136-145)
[2020-07-02 08:00] VITALS: BP 109/61
[2020-07-02 12:00] VITALS: BP 114/83
[2020-07-02 16:00] VITALS: BP 102/44
[2020-07-02 20:00] VITALS: BP 95/52
[2020-07-02 21:30] VITALS: BP 94/56
[2020-07-03] VITALS: BP 122/67
[2020-07-03 08:00] VITALS: BP 112/57
--- NOTE | 2020-07-03 09:00 | NUR ---
case management visits with patient, again discussed a discharge plan including [facility]. he was receptive to having [facility] visit him at home, case management will notify [facility] when patient is discharged. case management will follow
--- NOTE | 2020-07-03 09:43 | NUR ---
OT NOTE Attempted to see pt this A.M. for OT session and upon arrival pt was supine in bed. Pt declined therapy at this time stating "I am not transferring I already did it today and I didn't sleep at all last night. Check back with me after lunch." Will check back at a later time/date and continue with POC as able. AMIRA Calvo/Brielle
--- NOTE | 2020-07-03 09:45 | NUR ---
PHYSICAL THERAPY Patient was resting comfortably in bed this am when approached for therapy visit and stated he did not feel like getting up at this time for any treatment since he was just up a little while ago. Patient originally voiced he did not want to be bothered at all today, then changed his mind and requested for Therapist to check back this pm at a later time. Will continue per POC as able. Fuad Shoemaker, HEATING WORKER
[2020-07-03 12:00] VITALS: BP 114/60; BP 123/79
[2020-07-03 16:00] VITALS: BP 109/70
[2020-07-03 20:00] VITALS: BP 105/67
[2020-07-03 23:45] VITALS: BP 111/60
[2020-07-04 08:00] VITALS: BP 110/68
--- NOTE | 2020-07-04 08:05 | NUR ---
PHYSICAL THERAPY Patient was resting supine in bed when approached for therapy this am and declined all treatment this date, stating he was d/c to home. Will continue per POC as able. Fuad Shoemaker, SLUDGE MILL OPERATOR
--- NOTE | 2020-07-04 08:30 | NUR ---
OT NOTE Attempted to see pt this A.M. for OT session and upon arrival pt was supine in bed. Pt declined therapy stating "I am going home today. I am okay, I don't need any therapy." No treatment provided at this time. Will check back at a later time/date and continue with POC as able. AMIRA Calvo/Brielle
--- NOTE | 2020-07-04 10:30 | NUR ---
case management received a script for one dose of dalbavancin as an outpatient for patient, contacted [facility], spoke to [facility] to get medications pre approved for patient to have after discharge. all of patient's information given and reason for ordering this drug. per Shmuel he marked that this was an urgent authorization and stated this could still take up to 24 hours for a determination. case management will follow
[2020-07-04 12:00] VITALS: BP 92/56
--- NOTE | 2020-07-04 13:00 | NUR ---
case management received a fax that patient's antibiotic is denied through [facility]. case management was asked to speak to Earl at [facility] to help get medication approved for patient to receive. case management contacted [facility] and used a j code for antibiotics. spoke to Arron, medication does not need authorizated for this facility. call reference number is Arron F 07/04/20. case management contacted central scheduling and scheduled for tomorrow, patient notified
[2020-07-04] MEDS ORDERED: DALVANCE500 MG IV (15:14)
--- NOTE | 2020-07-04 15:16 | NUR ---
DR PARKS ROUNDED AND SEEN PT. ORDERS RECIEVED. D/C HELD UP UNTIL BP RECHECK FOR MEDS GIVEN,WILL CONTINUE TO MONITOR.CALL LIGHT IN REACH.
[2020-07-04] MEDS ORDERED: XARELTO10 MG PO (15:18)
[2020-07-04] MEDS ORDERED: FUROSEMIDE40 MG PO (15:24)
[2020-07-04] MEDS ORDERED: LEVOFLOXACIN500 MG PO (15:28)
[2020-07-04 16:00] VITALS: BP 113/62
--- NOTE | 2020-07-04 17:10 | NUR ---
PT DRESSING S TO REMAIN INTACT UNTIL TOMORROW AT F/U PODIATRY APPT PER PODIATRY. NO PHOTOS PER PROTOCOL. PT STATES "I REFUSE ANYWAYS". HOME MEDS RETURNED TO PT FROM PHARMACY.
--- NOTE | 2020-07-04 17:30 | NUR ---
Discharge instructions reviewed with patient/family. Patient receptive and verbalizes understanding. Follow-up care arranged. Written instructions given to patient/family. BROOKE AUGUSTE
--- NOTE | 2020-07-05 08:01 | NUR ---
PHYSICAL THERAPY CO-SIGN I approve of the Physical Therapy notes written above. DIOR ROSA PT, DPT
--- NOTE | 2020-07-05 17:07 | NUR ---
OCCUPATIONAL THERAPY CO-SIGN I approve of the Occupational Therapy notes written above. HARLEY SAM OTR/Brielle
--- NOTE | 2020-07-06 12:54 | NUR ---
Patient requested [facility] upon discharge. Received order and face to face; faxed referral, notified [facility] of patients discharge on 07/04/2020
[2020-08-14 12:10] LABS: ACID FAST CULTURE Negative (.)
[2020-08-14 12:10] LABS: ACID FAST CULTURE Negative (.)
[2020-08-14 12:10] LABS: ACID FAST CULTURE Negative (.)
== END 2020-07-04 17:30 | disposition home health service (06) | DRG 710 ==
LOC: ED 20:53 → EDHOLD 22:44 → 4E 22:44
PROVIDERS: Emergency Medicine Emergency Medical Services; Family Medicine; Hospitalist; Podiatrist; Student in an Organized Health Care Education/Training Program; ADMIT Student in an Organized Health Care Education/Training Program; ATTEND Student in an Organized Health Care Education/Training Program
PROC: 0LSP0ZZ Reposition Left Lower Leg Tendon, Open Approach (ICD-10-PCS; principal; 2020-06-28)
PROC: 0LSN0ZZ Reposition Right Lower Leg Tendon, Open Approach (ICD-10-PCS; 2020-06-28)
PROC: 0QBM0ZZ Excision of Left Tarsal, Open Approach (ICD-10-PCS; 2020-06-28)
PROC: 0HRNXK3 Replacement of Left Foot Skin with Nonautologous Tissue Substitute, Full Thickness, External Approach (ICD-10-PCS; 2020-06-28)
PROC: 0QBN0ZZ Excision of Right Metatarsal, Open Approach (ICD-10-PCS; 2020-06-28)
PROC: 0HRKXK3 Replacement of Right Lower Leg Skin with Nonautologous Tissue Substitute, Full Thickness, External Approach (ICD-10-PCS; 2020-06-28)
DX: A41.02 Sepsis due to Methicillin resistant Staphylococcus aureus (principal); L03.115 Cellulitis of right lower limb; L89.894 Pressure ulcer of other site, stage 4; E43 Unspecified severe protein-calorie malnutrition; E11.51 Type 2 diabetes mellitus with diabetic peripheral angiopathy without gangrene; E66.9 Obesity, unspecified; R65.20 Severe sepsis without septic shock; D50.9 Iron deficiency anemia, unspecified; I87.2 Venous insufficiency (chronic) (peripheral); E11.65 Type 2 diabetes mellitus with hyperglycemia; E11.59 Type 2 diabetes mellitus with other circulatory complications; E53.8 Deficiency of other specified B group vitamins; E55.9 Vitamin D deficiency, unspecified; I50.42 Chronic combined systolic (congestive) and diastolic (congestive) heart failure; I42.9 Cardiomyopathy, unspecified; E11.621 Type 2 diabetes mellitus with foot ulcer; E11.42 Type 2 diabetes mellitus with diabetic polyneuropathy; E11.69 Type 2 diabetes mellitus with other specified complication; M86.8X6 Other osteomyelitis, lower leg; M86.8X7 Other osteomyelitis, ankle and foot; S91.301A Unspecified open wound, right foot, initial encounter; I25.2 Old myocardial infarction; Z88.8 Allergy status to other drugs, medicaments and biological substances; Z89.412 Acquired absence of left great toe; Z89.411 Acquired absence of right great toe; Z89.432 Acquired absence of left foot; Z87.891 Personal history of nicotine dependence; Z82.49 Family history of ischemic heart disease and other diseases of the circulatory system; Z80.41 Family history of malignant neoplasm of ovary; Z68.36 Body mass index [BMI] 36.0-36.9, adult; Z79.899 Other long term (current) drug therapy; X58.XXXA Exposure to other specified factors, initial encounter; Y93.89 Activity, other specified; Y92.89 Other specified places as the place of occurrence of the external cause; Y99.8 Other external cause status; L89.893 Pressure ulcer of other site, stage 3

== ENCOUNTER 2020-09-20 12:25 | Inpatient (IN) | payer OTHER ==
[~2020-09-20] VITALS: Ht 188 cm; Wt 117.7 kg
[~2020-09-20 12:25] MED LIST changes: +ASPIRIN CHEWABL81 MG PO; +ATORVASTATIN CA20 M1 PO; +CARVEDILOL12.5 MG PO; +DALVANCE500 MG IV; +LEVOFLOXACIN500 MG PO
[2020-09-20 12:30] VITALS: BP 119/63
[2020-09-20 12:58] VITALS: BP 115/67
[2020-09-20 13:14] LABS: BASO % 0.3 % (0.0-1.0); EOS # 0.1 10*3/uL (0.0-0.4); EOS % 0.8 % (1.0-4.0); HEMATOCRIT 39.1 % (42.0-52.0); LYMPH # 0.7 10*3/uL (1.3-4.4); LYMPH % 6.5 % (27.0-41.0); MEAN CORPUSCULAR HGB 24.6 pg (27.0-31.0); MEAN CORPUSCULAR HGB CONC 31.2 g/dl (33.0-37.0); MEAN PLATELET VOLUME 10.4 fl (9.6-12.3); MONO # 0.4 10*3/uL (0.1-1.0); MONO % 3.5 % (3.0-9.0); NEUT # 9.2 10*3/uL (2.3-7.9); NEUT % 88.5 % (47.0-73.0); PLATELET COUNT AUTOMATED 270 10*3/uL (130-400); RED BLOOD COUNT 4.95 10*6/uL (4.50-5.90); RED CELL DISTRI WIDTH 16.5 % (0-14.5); WHITE BLOOD COUNT 10.4 10*3/uL (4.8-10.8)
[2020-09-20 13:25] VITALS: BP 111/64
[2020-09-20 13:33] LABS: ALBUMIN 3.3 gm/dl (3.1-4.5); ALKALINE PHOSPHATASE 79 U/L (45-117); BUN 18 mg/dl (7-24); CHLORIDE 106 mmol/L (98-107); CREATININE 0.97 mg/dL (0.70-1.30); POTASSIUM 3.9 mmol/L (3.5-5.1); SGOT/AST 30 IU/L (3-35); SGPT/ALT 18 U/L (12-78); SODIUM 135 mmol/L (136-145); TOTAL PROTEIN 7.9 gm/dL (6.4-8.2)
[2020-09-20 13:39] LABS: TROPONIN I 0.021 ng/ml (<0.045)
[2020-09-20 14:01] LABS: ACT PARTIAL THROMBO TIME 30.6 SECONDS (20.0-32.1); INTERNATIONAL NORM RATIO 1.1 (2.0-3.5)
[2020-09-20 15:30] VITALS: BP 126/54
[2020-09-20 16:14] VITALS: BP 121/75
[2020-09-20 16:49] LABS: ARTERIAL BLOOD GAS PH 7.404 (7.35-7.45)
[2020-09-20] MEDS ORDERED: ASPIRIN CHEWABL81 MG PO (18:09)
[2020-09-20 20:00] VITALS: BP 118/77
[2020-09-21] VITALS: BP 102/57
[2020-09-21 06:33] LABS: BASO % 0.4 % (0.0-1.0); EOS % 0.8 % (1.0-4.0); HEMATOCRIT 36.5 % (42.0-52.0); LYMPH # 0.5 10*3/uL (1.3-4.4); LYMPH % 10.6 % (27.0-41.0); MEAN CELL VOLUME 81.8 fl (80.0-94.0); MEAN CORPUSCULAR HGB 24.4 pg (27.0-31.0); MEAN CORPUSCULAR HGB CONC 29.9 g/dl (33.0-37.0); MEAN PLATELET VOLUME 10.2 fl (9.6-12.3); MONO # 0.3 10*3/uL (0.1-1.0); MONO % 6.1 % (3.0-9.0); NEUT # 4.2 10*3/uL (2.3-7.9); NEUT % 81.9 % (47.0-73.0); RED BLOOD COUNT 4.46 10*6/uL (4.50-5.90); RED CELL DISTRI WIDTH 16.5 % (0-14.5); WHITE BLOOD COUNT 5.1 10*3/uL (4.8-10.8)
[2020-09-21 06:34] LABS: PLATELET COUNT AUTOMATED 184 10*3/uL (130-400)
[2020-09-21 06:41] LABS: CHLORIDE 105 mmol/L (98-107); POTASSIUM 3.3 mmol/L (3.5-5.1); SODIUM 135 mmol/L (136-145)
[2020-09-21 06:56] LABS: ALBUMIN 2.6 gm/dl (3.1-4.5); ALKALINE PHOSPHATASE 69 U/L (45-117); BUN 16 mg/dl (7-24); CREATININE 0.79 mg/dL (0.70-1.30); LDH 175 U/L (87-241); SGOT/AST 13 IU/L (3-35); SGPT/ALT 15 U/L (12-78); TOTAL PROTEIN 6.5 gm/dL (6.4-8.2)
[2020-09-21 08:00] VITALS: BP 90/60
[2020-09-21 08:46] LABS: FERRITIN 199.5 ng/mL (22.0-322.0); VITAMIN D, 25-HYDROXY 11.1 ng/mL (30-100)
[2020-09-21 11:00] VITALS: BP 140/80
[2020-09-21 12:00] VITALS: BP 105/59
[2020-09-21 16:00] VITALS: BP 115/65
[2020-09-21 20:00] VITALS: BP 116/47
[2020-09-22] VITALS: BP 122/71
[2020-09-22 07:43] LABS: BASO % 0.9 % (0.0-1.0); EOS # 0.2 10*3/uL (0.0-0.4); EOS % 5.2 % (1.0-4.0); HEMATOCRIT 35.5 % (42.0-52.0); LYMPH # 0.9 10*3/uL (1.3-4.4); LYMPH % 19.4 % (27.0-41.0); MEAN CELL VOLUME 80.3 fl (80.0-94.0); MEAN CORPUSCULAR HGB 24.2 pg (27.0-31.0); MEAN CORPUSCULAR HGB CONC 30.1 g/dl (33.0-37.0); MEAN PLATELET VOLUME 10.5 fl (9.6-12.3); MONO # 0.5 10*3/uL (0.1-1.0); MONO % 11.4 % (3.0-9.0); NEUT # 2.9 10*3/uL (2.3-7.9); NEUT % 62.9 % (47.0-73.0); PLATELET COUNT AUTOMATED 198 10*3/uL (130-400); RED BLOOD COUNT 4.42 10*6/uL (4.50-5.90); RED CELL DISTRI WIDTH 16.5 % (0-14.5); WHITE BLOOD COUNT 4.6 10*3/uL (4.8-10.8)
[2020-09-22 07:57] LABS: ALBUMIN 2.5 gm/dl (3.1-4.5); ALKALINE PHOSPHATASE 71 U/L (45-117); BUN 12 mg/dl (7-24); CHLORIDE 108 mmol/L (98-107); CREATININE 0.72 mg/dL (0.70-1.30); LDH 172 U/L (87-241); POTASSIUM 3.8 mmol/L (3.5-5.1); SGOT/AST 14 IU/L (3-35); SGPT/ALT 15 U/L (12-78); SODIUM 137 mmol/L (136-145); TOTAL PROTEIN 6.7 gm/dL (6.4-8.2)
[2020-09-22 08:00] VITALS: BP 124/74
[2020-09-22 10:22] LABS: BILIRUBIN Negative (Negative); BLOOD Negative (Negative); CLARITY Clear (Clear); COLOR Yellow (Yellow); GLUCOSE Negative (Negative); KETONE Negative (Negative); LEUKO ESTERASE Negative (Negative); NITRITE Negative (Negative); PH 5.5 (4.5-8.0); SPECIFIC GRAVITY 1.025 (1.001-1.030)
[2020-09-22 10:54] LABS: BACTERIA 1+; MUCOUS 1+; WBC 0-2 wbc/hpf (0-5)
[2020-09-22 12:00] VITALS: BP 109/65; BP 120/71
[2020-09-22 16:00] VITALS: BP 112/64
[2020-09-22 20:00] VITALS: BP 114/72
[2020-09-23] VITALS: BP 127/78
[2020-09-23 06:52] LABS: BASO % 0.6 % (0.0-1.0); EOS # 0.3 10*3/uL (0.0-0.4); EOS % 5.3 % (1.0-4.0); LYMPH # 1.3 10*3/uL (1.3-4.4); LYMPH % 24.6 % (27.0-41.0); MEAN CELL VOLUME 79.6 fl (80.0-94.0); MEAN CORPUSCULAR HGB 23.7 pg (27.0-31.0); MEAN CORPUSCULAR HGB CONC 29.7 g/dl (33.0-37.0); MEAN PLATELET VOLUME 10.6 fl (9.6-12.3); MONO # 0.6 10*3/uL (0.1-1.0); MONO % 11.3 % (3.0-9.0); NEUT # 3.1 10*3/uL (2.3-7.9); PLATELET COUNT AUTOMATED 214 10*3/uL (130-400); RED BLOOD COUNT 4.52 10*6/uL (4.50-5.90); RED CELL DISTRI WIDTH 16.5 % (0-14.5); WHITE BLOOD COUNT 5.3 10*3/uL (4.8-10.8)
[2020-09-23 07:08] LABS: ALBUMIN 2.5 gm/dl (3.1-4.5); ALKALINE PHOSPHATASE 67 U/L (45-117); BUN 9 mg/dl (7-24); CHLORIDE 107 mmol/L (98-107); CREATININE 0.59 mg/dL (0.70-1.30); POTASSIUM 3.8 mmol/L (3.5-5.1); SGOT/AST 10 IU/L (3-35); SGPT/ALT 16 U/L (12-78); SODIUM 137 mmol/L (136-145); TOTAL PROTEIN 6.5 gm/dL (6.4-8.2)
[2020-09-23 08:00] VITALS: BP 110/68
[2020-09-23 12:00] VITALS: BP 131/77
[2020-09-23 16:00] VITALS: BP 126/70
[2020-09-23 20:00] VITALS: BP 128/101; BP 132/72
[2020-09-24] VITALS: BP 140/78
[2020-09-24 07:37] LABS: BASO % 0.6 % (0.0-1.0); EOS # 0.4 10*3/uL (0.0-0.4); EOS % 6.4 % (1.0-4.0); HEMATOCRIT 37.5 % (42.0-52.0); LYMPH # 1.5 10*3/uL (1.3-4.4); LYMPH % 23.4 % (27.0-41.0); MEAN CELL VOLUME 78.9 fl (80.0-94.0); MEAN CORPUSCULAR HGB 23.6 pg (27.0-31.0); MEAN CORPUSCULAR HGB CONC 29.9 g/dl (33.0-37.0); MEAN PLATELET VOLUME 10.4 fl (9.6-12.3); MONO # 0.5 10*3/uL (0.1-1.0); MONO % 7.6 % (3.0-9.0); NEUT % 61.4 % (47.0-73.0); PLATELET COUNT AUTOMATED 250 10*3/uL (130-400); RED BLOOD COUNT 4.75 10*6/uL (4.50-5.90); RED CELL DISTRI WIDTH 16.2 % (0-14.5); WHITE BLOOD COUNT 6.6 10*3/uL (4.8-10.8)
[2020-09-24 08:00] VITALS: BP 142/87
[2020-09-24 08:13] LABS: ALBUMIN 2.6 gm/dl (3.1-4.5); ALKALINE PHOSPHATASE 68 U/L (45-117); BUN 9 mg/dl (7-24); CHLORIDE 109 mmol/L (98-107); CREATININE 0.67 mg/dL (0.70-1.30); POTASSIUM 3.9 mmol/L (3.5-5.1); SGOT/AST 14 IU/L (3-35); SGPT/ALT 16 U/L (12-78); SODIUM 140 mmol/L (136-145); TOTAL PROTEIN 6.9 gm/dL (6.4-8.2)
[2020-09-24 12:00] VITALS: BP 134/60
[2020-09-24 16:00] VITALS: BP 134/73
[2020-09-24 20:00] VITALS: BP 135/70
[2020-09-25] VITALS: BP 133/47
[2020-09-25 04:00] VITALS: BP 132/76
[2020-09-25 08:00] VITALS: BP 132/77
[2020-09-25 12:00] VITALS: BP 127/74
[2020-09-25] MEDS ORDERED: ERTAPENEM1 GM IV (15:02)
[2020-09-25] MEDS ORDERED: VANCO 1.51.5 GM/250 IV (15:02)
[2020-09-25 16:00] VITALS: BP 112/63
[2020-09-25 20:00] VITALS: BP 140/88
[2020-09-26] VITALS: BP 128/83
[2020-09-26 08:00] VITALS: BP 122/78
[2020-09-26 12:00] VITALS: BP 122/78
[2020-09-26 16:00] VITALS: BP 131/68
[2020-09-26 20:00] VITALS: BP 98/61
[2020-09-27] VITALS: BP 136/71
[2020-09-27 07:10] LABS: BUN 12 mg/dl (7-24); CREATININE 0.71 mg/dL (0.70-1.30)
[2020-09-27 08:00] VITALS: BP 128/70
[2020-09-27 12:00] VITALS: BP 115/68
[2020-09-27 16:00] VITALS: BP 120/70
[2020-09-27 18:00] VITALS: BP 122/79
[2020-09-27 20:00] VITALS: BP 114/60
[2020-09-28] VITALS: BP 139/81
[2020-09-28 12:00] VITALS: BP 127/72
[2020-09-28 16:00] VITALS: BP 139/74
== END 2020-09-28 18:40 | disposition home or self-care (01) | DRG 720 ==
LOC: ED 12:25 → 4E 14:34 → 5E 14:34 → EDHOLD 14:34 → 4E 16:05 → 5E 09-22 11:51
PROVIDERS: Emergency Medicine; Internal Medicine Critical Care Medicine; Social Worker Clinical; ADMIT Family Medicine; ATTEND Family Medicine
PROC: 5A09357 Assistance with Respiratory Ventilation, Less than 24 Consecutive Hours, Continuous Positive Airway Pressure (ICD-10-PCS; 2020-09-20)
PROC: 02HV33Z Insertion of Infusion Device into Superior Vena Cava, Percutaneous Approach (ICD-10-PCS; principal; 2020-09-25)
DX: A41.02 Sepsis due to Methicillin resistant Staphylococcus aureus (principal); J96.01 Acute respiratory failure with hypoxia; D50.9 Iron deficiency anemia, unspecified; E11.65 Type 2 diabetes mellitus with hyperglycemia; L89.893 Pressure ulcer of other site, stage 3; E87.1 Hypo-osmolality and hyponatremia; L03.115 Cellulitis of right lower limb; Z20.822 Contact with and (suspected) exposure to COVID-19; D72.810 Lymphocytopenia; E11.51 Type 2 diabetes mellitus with diabetic peripheral angiopathy without gangrene; E80.6 Other disorders of bilirubin metabolism; E11.22 Type 2 diabetes mellitus with diabetic chronic kidney disease; E66.9 Obesity, unspecified; E53.8 Deficiency of other specified B group vitamins; E83.39 Other disorders of phosphorus metabolism; E87.8 Other disorders of electrolyte and fluid balance, not elsewhere classified; I50.20 Unspecified systolic (congestive) heart failure; L03.116 Cellulitis of left lower limb; E11.42 Type 2 diabetes mellitus with diabetic polyneuropathy; E11.69 Type 2 diabetes mellitus with other specified complication; I87.2 Venous insufficiency (chronic) (peripheral); E11.621 Type 2 diabetes mellitus with foot ulcer; E87.5 Hyperkalemia; L97.519 Non-pressure chronic ulcer of other part of right foot with unspecified severity; M86.141 Other acute osteomyelitis, right hand; J20.9 Acute bronchitis, unspecified; I87.8 Other specified disorders of veins; E44.0 Moderate protein-calorie malnutrition; Z82.49 Family history of ischemic heart disease and other diseases of the circulatory system; Z80.41 Family history of malignant neoplasm of ovary; Z87.891 Personal history of nicotine dependence; Z88.8 Allergy status to other drugs, medicaments and biological substances; Z79.82 Long term (current) use of aspirin; Z79.899 Other long term (current) drug therapy; Z68.36 Body mass index [BMI] 36.0-36.9, adult

== ENCOUNTER 2020-11-25 09:05 | Inpatient (IN) | payer OTHER ==
[~2020-11-25] VITALS: Ht 185.4 cm; Wt 131.3 kg
[~2020-11-25 09:05] MED LIST changes: +ERTAPENEM1 GM IV; +VANCO 1.51.5 GM/250 IV
[2020-11-25 09:16] VITALS: BP 128/72
[2020-11-25 09:37] LABS: BASO # 0.1 10*3/uL (0.0-0.1); BASO % 0.7 % (0.0-1.0); EOS # 0.2 10*3/uL (0.0-0.4); EOS % 2.6 % (1.0-4.0); HEMATOCRIT 41.5 % (42.0-52.0); LYMPH # 1.2 10*3/uL (1.3-4.4); LYMPH % 13.4 % (27.0-41.0); MEAN CORPUSCULAR HGB 24.4 pg (27.0-31.0); MEAN CORPUSCULAR HGB CONC 29.4 g/dl (33.0-37.0); MEAN PLATELET VOLUME 10.7 fl (9.6-12.3); MONO # 0.6 10*3/uL (0.1-1.0); NEUT # 7.1 10*3/uL (2.3-7.9); NEUT % 77.1 % (47.0-73.0); NUCLEATED RED BLOOD CELL 0.4 % (0.0-0.0); PLATELET COUNT AUTOMATED 257 10*3/uL (130-400); RED CELL DISTRI WIDTH 17.3 % (0-14.5); WHITE BLOOD COUNT 9.2 10*3/uL (4.8-10.8)
[2020-11-25 09:52] LABS: ACT PARTIAL THROMBO TIME 25.9 SECONDS (20.0-32.1)
[2020-11-25 09:54] LABS: ALBUMIN 2.9 gm/dl (3.1-4.5); ALKALINE PHOSPHATASE 85 U/L (45-117); BUN 16 mg/dl (7-24); CHLORIDE 108 mmol/L (98-107); CREATININE 0.82 mg/dL (0.70-1.30); POTASSIUM 3.8 mmol/L (3.5-5.1); SGOT/AST 5 IU/L (3-35); SGPT/ALT 16 U/L (12-78); SODIUM 140 mmol/L (136-145); TOTAL PROTEIN 6.8 gm/dL (6.4-8.2)
[2020-11-25 09:59] LABS: TROPONIN I 0.078 ng/ml (<0.045)
[2020-11-25 11:08] VITALS: BP 133/82
[2020-11-25 11:35] VITALS: BP 130/71
[2020-11-25 12:00] VITALS: BP 132/67
[2020-11-25 16:00] VITALS: BP 134/88
[2020-11-25 20:00] VITALS: BP 114/65
[2020-11-26] VITALS: BP 127/73
[2020-11-26 06:17] LABS: BASO # 0.1 10*3/uL (0.0-0.1); BASO % 0.7 % (0.0-1.0); EOS # 0.3 10*3/uL (0.0-0.4); EOS % 3.9 % (1.0-4.0); HEMATOCRIT 45.3 % (42.0-52.0); LYMPH # 2.1 10*3/uL (1.3-4.4); MEAN CELL VOLUME 80.9 fl (80.0-94.0); MEAN CORPUSCULAR HGB 24.3 pg (27.0-31.0); MEAN PLATELET VOLUME 10.7 fl (9.6-12.3); MONO # 0.8 10*3/uL (0.1-1.0); MONO % 8.8 % (3.0-9.0); NEUT # 5.4 10*3/uL (2.3-7.9); NEUT % 62.3 % (47.0-73.0); PLATELET COUNT AUTOMATED 299 10*3/uL (130-400); RED CELL DISTRI WIDTH 17.5 % (0-14.5); WHITE BLOOD COUNT 8.6 10*3/uL (4.8-10.8)
[2020-11-26 06:50] LABS: ALBUMIN 3.2 gm/dl (3.1-4.5); ALKALINE PHOSPHATASE 91 U/L (45-117); BUN 21 mg/dl (7-24); CHLORIDE 108 mmol/L (98-107); CREATININE 0.92 mg/dL (0.70-1.30); POTASSIUM 3.9 mmol/L (3.5-5.1); SGOT/AST 12 IU/L (3-35); SGPT/ALT 16 U/L (12-78); SODIUM 141 mmol/L (136-145); TOTAL PROTEIN 7.7 gm/dL (6.4-8.2)
[2020-11-26 08:00] VITALS: BP 137/82
[2020-11-26 12:00] VITALS: BP 115/60
[2020-11-26 16:00] VITALS: BP 118/74
[2020-11-26 20:00] VITALS: BP 92/72
[2020-11-27] VITALS: BP 108/69
[2020-11-27 06:26] LABS: BASO # 0.1 10*3/uL (0.0-0.1); EOS # 0.3 10*3/uL (0.0-0.4); EOS % 3.4 % (1.0-4.0); HEMATOCRIT 46.5 % (42.0-52.0); LYMPH # 2.2 10*3/uL (1.3-4.4); MEAN CELL VOLUME 79.9 fl (80.0-94.0); MEAN CORPUSCULAR HGB 24.2 pg (27.0-31.0); MEAN CORPUSCULAR HGB CONC 30.3 g/dl (33.0-37.0); MEAN PLATELET VOLUME 10.8 fl (9.6-12.3); MONO # 0.7 10*3/uL (0.1-1.0); MONO % 8.1 % (3.0-9.0); NEUT # 5.8 10*3/uL (2.3-7.9); NEUT % 63.2 % (47.0-73.0); PLATELET COUNT AUTOMATED 321 10*3/uL (130-400); RED BLOOD COUNT 5.82 10*6/uL (4.50-5.90); RED CELL DISTRI WIDTH 17.9 % (0-14.5); WHITE BLOOD COUNT 9.1 10*3/uL (4.8-10.8)
[2020-11-27 06:52] LABS: ALBUMIN 3.3 gm/dl (3.1-4.5); ALKALINE PHOSPHATASE 90 U/L (45-117); BUN 29 mg/dl (7-24); CHLORIDE 105 mmol/L (98-107); CREATININE 0.85 mg/dL (0.70-1.30); POTASSIUM 3.7 mmol/L (3.5-5.1); SGOT/AST 12 IU/L (3-35); SGPT/ALT 17 U/L (12-78); SODIUM 139 mmol/L (136-145); TOTAL PROTEIN 7.8 gm/dL (6.4-8.2)
[2020-11-27 07:44] VITALS: BP 98/64; BP 98/69
[2020-11-27 09:10] VITALS: BP 110/70
[2020-11-27 11:33] VITALS: BP 118/60
== END 2020-11-27 12:57 | disposition home or self-care (01) | DRG 194 ==
LOC: ED 09:05 → EDHOLD 10:52 → 4E 10:52
PROVIDERS: Emergency Medicine; Internal Medicine; Social Worker Clinical; ADMIT Family Medicine; ATTEND Family Medicine
DX: I50.43 Acute on chronic combined systolic (congestive) and diastolic (congestive) heart failure (principal); E44.0 Moderate protein-calorie malnutrition; E55.9 Vitamin D deficiency, unspecified; R07.9 Chest pain, unspecified; D64.9 Anemia, unspecified; D72.810 Lymphocytopenia; E87.8 Other disorders of electrolyte and fluid balance, not elsewhere classified; R77.8 Other specified abnormalities of plasma proteins; I50.814 Right heart failure due to left heart failure; E11.51 Type 2 diabetes mellitus with diabetic peripheral angiopathy without gangrene; E11.65 Type 2 diabetes mellitus with hyperglycemia; I38 Endocarditis, valve unspecified; Z88.8 Allergy status to other drugs, medicaments and biological substances; I25.2 Old myocardial infarction; Z89.421 Acquired absence of other right toe(s); Z87.891 Personal history of nicotine dependence; Z82.49 Family history of ischemic heart disease and other diseases of the circulatory system; Z80.41 Family history of malignant neoplasm of ovary; Z89.422 Acquired absence of other left toe(s); Z79.82 Long term (current) use of aspirin; Z79.899 Other long term (current) drug therapy; Z68.39 Body mass index [BMI] 39.0-39.9, adult

== ENCOUNTER 2021-02-28 15:46 | Inpatient (IN) | payer OTHER ==
[~2021-02-28] VITALS: Ht 185.4 cm; Wt 128.4 kg
[2021-02-28 15:49] VITALS: BP 106/72
[2021-02-28 17:57] VITALS: BP 103/65
[2021-02-28 18:38] VITALS: BP 96/53
[2021-02-28 19:15] LABS: BILIRUBIN 1+ (Negative); BLOOD Trace-Lysed (Negative); CLARITY Clear (Clear); COLOR Dark Yellow (Yellow); GLUCOSE Negative (Negative); KETONE Negative (Negative); LEUKO ESTERASE Negative (Negative); NITRITE Negative (Negative); PH 5.5 (4.5-8.0)
[2021-02-28 19:27] LABS: COARSE GRANULAR CAST 0-2; MUCOUS 1+; WBC 0-2 wbc/hpf (0-5)
[2021-02-28 20:17] VITALS: BP 101/61
[2021-02-28 22:12] VITALS: BP 125/54
[2021-02-28 22:53] LABS: EOS % 0.2 % (1.0-4.0); HEMATOCRIT 37.7 % (42.0-52.0); LYMPH # 0.3 10*3/uL (1.3-4.4); LYMPH % 4.7 % (27.0-41.0); MEAN CELL VOLUME 80.7 fl (80.0-94.0); MEAN CORPUSCULAR HGB 24.4 pg (27.0-31.0); MEAN CORPUSCULAR HGB CONC 30.2 g/dl (33.0-37.0); MEAN PLATELET VOLUME 10.4 fl (9.6-12.3); MONO # 0.3 10*3/uL (0.1-1.0); MONO % 5.2 % (3.0-9.0); NEUT # 5.5 10*3/uL (2.3-7.9); NEUT % 89.6 % (47.0-73.0); PLATELET COUNT AUTOMATED 190 10*3/uL (130-400); RED BLOOD COUNT 4.67 10*6/uL (4.50-5.90); RED CELL DISTRI WIDTH 17.8 % (0-14.5); WHITE BLOOD COUNT 6.2 10*3/uL (4.8-10.8)
[2021-02-28 23:08] LABS: ALBUMIN 2.6 gm/dl (3.1-4.5); ALKALINE PHOSPHATASE 78 U/L (45-117); BUN 24 mg/dl (7-24); CHLORIDE 103 mmol/L (98-107); CREATININE 0.91 mg/dL (0.70-1.30); POTASSIUM 4.3 mmol/L (3.5-5.1); SGOT/AST 21 IU/L (3-35); SGPT/ALT 19 U/L (12-78); SODIUM 133 mmol/L (136-145); TOTAL PROTEIN 7.1 gm/dL (6.4-8.2)
[2021-02-28 23:14] VITALS: BP 112/70
[2021-03-01] VITALS (12 sets, daily range): BP systolic 90–132; BP diastolic 57–88
[2021-03-01 05:55] LABS: ALBUMIN 2.4 gm/dl (3.1-4.5); ALKALINE PHOSPHATASE 73 U/L (45-117); BUN 25 mg/dl (7-24); CHLORIDE 104 mmol/L (98-107); CREATININE 0.74 mg/dL (0.70-1.30); POTASSIUM 4.3 mmol/L (3.5-5.1); SGOT/AST 18 IU/L (3-35); SGPT/ALT 18 U/L (12-78); SODIUM 134 mmol/L (136-145); TOTAL PROTEIN 6.9 gm/dL (6.4-8.2)
[2021-03-01 06:05] LABS: HEMATOCRIT 40.1 % (42.0-52.0); LYMPH # 0.4 10*3/uL (1.3-4.4); LYMPH % 5.3 % (27.0-41.0); MEAN CELL VOLUME 81.5 fl (80.0-94.0); MEAN CORPUSCULAR HGB CONC 29.4 g/dl (33.0-37.0); MEAN PLATELET VOLUME 10.8 fl (9.6-12.3); MONO # 0.4 10*3/uL (0.1-1.0); MONO % 5.4 % (3.0-9.0); NEUT # 6.6 10*3/uL (2.3-7.9); PLATELET COUNT AUTOMATED 226 10*3/uL (130-400); RED BLOOD COUNT 4.92 10*6/uL (4.50-5.90); RED CELL DISTRI WIDTH 17.6 % (0-14.5); WHITE BLOOD COUNT 7.4 10*3/uL (4.8-10.8)
[2021-03-02] VITALS (9 sets, daily range): BP systolic 114–135; BP diastolic 60–88
[2021-03-03] VITALS: BP 123/78
[2021-03-03 06:27] LABS: BUN 24 mg/dl (7-24); CHLORIDE 102 mmol/L (98-107); CREATININE 0.61 mg/dL (0.70-1.30); SODIUM 133 mmol/L (136-145)
[2021-03-03 06:43] LABS: BASO % 0.2 % (0.0-1.0); EOS % 0.4 % (1.0-4.0); HEMATOCRIT 33.6 % (42.0-52.0); LYMPH # 0.6 10*3/uL (1.3-4.4); LYMPH % 6.6 % (27.0-41.0); MEAN CELL VOLUME 80.2 fl (80.0-94.0); MEAN CORPUSCULAR HGB 23.9 pg (27.0-31.0); MEAN CORPUSCULAR HGB CONC 29.8 g/dl (33.0-37.0); MEAN PLATELET VOLUME 10.8 fl (9.6-12.3); MONO # 0.8 10*3/uL (0.1-1.0); MONO % 8.3 % (3.0-9.0); NEUT # 7.6 10*3/uL (2.3-7.9); NEUT % 83.6 % (47.0-73.0); PLATELET COUNT AUTOMATED 190 10*3/uL (130-400); RED BLOOD COUNT 4.19 10*6/uL (4.50-5.90); RED CELL DISTRI WIDTH 17.6 % (0-14.5); WHITE BLOOD COUNT 9.1 10*3/uL (4.8-10.8)
[2021-03-03 08:00] VITALS: BP 111/88
[2021-03-03 12:00] VITALS: BP 118/82
[2021-03-03 12:07] LABS: ACID FAST SPEC PROCESSING Tissue Grinding (.)
[2021-03-03 12:07] LABS: ACID FAST SPEC PROCESSING Tissue Grinding (.)
[2021-03-03 12:07] LABS: ACID FAST SPEC PROCESSING Tissue Grinding (.)
[2021-03-03 12:07] LABS: ACID FAST SPEC PROCESSING Tissue Grinding (.)
[2021-03-03 12:07] LABS: ACID FAST SPEC PROCESSING Tissue Grinding (.)
[2021-03-03 16:00] VITALS: BP 128/87
[2021-03-03 20:00] VITALS: BP 120/82
[2021-03-04] VITALS: BP 121/75
[2021-03-04 08:00] VITALS: BP 143/122
[2021-03-04 12:00] VITALS: BP 141/76
[2021-03-04 16:00] VITALS: BP 115/82
[2021-03-04 20:00] VITALS: BP 142/85
[2021-03-05] VITALS: BP 125/78
[2021-03-05 08:00] VITALS: BP 117/68
[2021-03-05 12:00] VITALS: BP 116/81
[2021-03-05] MEDS ORDERED: CEFEPIME HYDROCH2 GM IJ (15:42)
[2021-03-05] MEDS ORDERED: VANCO 1.51.5 GM/250 IV (15:42)
[2021-03-05 16:00] VITALS: BP 115/66
[2021-03-05 20:00] VITALS: BP 123/85
[2021-03-06] VITALS: BP 127/82
[2021-03-06 06:43] LABS: MEAN CELL VOLUME 81.1 fl (80.0-94.0); MEAN CORPUSCULAR HGB 23.5 pg (27.0-31.0); MEAN PLATELET VOLUME 10.3 fl (9.6-12.3); NUCLEATED RED BLOOD CELL 0.1 10*3/uL (0.0-0.0); NUCLEATED RED BLOOD CELL 0.3 % (0.0-0.0); PLATELET COUNT AUTOMATED 362 10*3/uL (130-400); WHITE BLOOD COUNT 18.1 10*3/uL (4.8-10.8)
[2021-03-06 07:12] LABS: CREATININE 0.62 mg/dL (0.70-1.30)
[2021-03-06 07:20] LABS: PLATELET SUFFICIENCY NORMAL (NORMAL); POLYCHROMASIA SLIGHT; TOTAL CELLS COUNTED 100 #CELLS
[2021-03-06 07:21] LABS: BURR CELLS FEW; OVALOCYTES FEW; SCHISTOCYTES FEW
[2021-03-06 08:00] VITALS: BP 130/78
[2021-03-06 12:00] VITALS: BP 132/72
[2021-03-06 16:04] VITALS: BP 120/72
[2021-03-06 20:00] VITALS: BP 126/78
[2021-03-06 23:42] VITALS: BP 123/75
[2021-03-07] VITALS (9 sets, daily range): BP systolic 81–125; BP diastolic 45–84
[2021-03-07 06:24] LABS: HEMATOCRIT 29.3 % (42.0-52.0); MEAN CELL VOLUME 81.2 fl (80.0-94.0); MEAN CORPUSCULAR HGB 23.8 pg (27.0-31.0); MEAN CORPUSCULAR HGB CONC 29.4 g/dl (33.0-37.0); MEAN PLATELET VOLUME 10.1 fl (9.6-12.3); NUCLEATED RED BLOOD CELL 0.2 % (0.0-0.0); PLATELET COUNT AUTOMATED 347 10*3/uL (130-400); RED BLOOD COUNT 3.61 10*6/uL (4.50-5.90); RED CELL DISTRI WIDTH 17.7 % (0-14.5); WHITE BLOOD COUNT 16.1 10*3/uL (4.8-10.8)
[2021-03-07 07:02] LABS: CHLORIDE 102 mmol/L (98-107); POTASSIUM 3.8 mmol/L (3.5-5.1); SODIUM 135 mmol/L (136-145)
[2021-03-07 07:10] LABS: BUN 15 mg/dl (7-24); CREATININE 0.63 mg/dL (0.70-1.30)
[2021-03-07 07:13] LABS: PLATELET SUFFICIENCY NORMAL (NORMAL); POLYCHROMASIA SLIGHT; TOTAL CELLS COUNTED 100 #CELLS
[2021-03-07 07:14] LABS: BURR CELLS FEW; OVALOCYTES FEW; SCHISTOCYTES FEW
[2021-03-07] MEDS ORDERED: LEVOFLOXACIN750 M2 PO (16:39)
[2021-03-07] MEDS ORDERED: DOXYCYCLINE100 M3 PO (16:39)
[2021-03-08 14:08] LABS: ACID FAST SPEC PROCESSING Tissue Grinding (.)
[2021-03-08 14:08] LABS: ACID FAST SPEC PROCESSING Tissue Grinding (.)
[2021-03-08 14:08] LABS: ACID FAST SPEC PROCESSING Tissue Grinding (.)
[2021-04-15 11:06] LABS: ACID FAST CULTURE Negative (.)
[2021-04-15 11:06] LABS: ACID FAST CULTURE Negative (.)
[2021-04-15 11:06] LABS: ACID FAST CULTURE Negative (.)
[2021-04-15 11:06] LABS: ACID FAST CULTURE Negative (.)
[2021-04-15 11:06] LABS: ACID FAST CULTURE Negative (.)
[2021-04-21 10:08] LABS: ACID FAST CULTURE Negative (.)
[2021-04-21 10:08] LABS: ACID FAST CULTURE Negative (.)
[2021-04-21 10:08] LABS: ACID FAST CULTURE Negative (.)
== END 2021-03-07 17:30 | disposition left against medical advice (07) | DRG 710 ==
LOC: ED 15:46 → 5E 22:43 → EDHOLD 22:43 → 5E 03-01 07:09
PROVIDERS: Hospitalist; Physician Assistant; Podiatrist; Podiatrist Foot & Ankle Surgery; ADMIT Internal Medicine; ATTEND Internal Medicine
PROC: 0JBR0ZZ Excision of Left Foot Subcutaneous Tissue and Fascia, Open Approach (ICD-10-PCS; principal; 2021-03-02)
PROC: 0HRNXK3 Replacement of Left Foot Skin with Nonautologous Tissue Substitute, Full Thickness, External Approach (ICD-10-PCS; 2021-03-02)
PROC: 0QBN0ZZ Excision of Right Metatarsal, Open Approach (ICD-10-PCS; 2021-03-02)
PROC: 0JBQ0ZZ Excision of Right Foot Subcutaneous Tissue and Fascia, Open Approach (ICD-10-PCS; 2021-03-02)
PROC: 0HRMXK3 Replacement of Right Foot Skin with Nonautologous Tissue Substitute, Full Thickness, External Approach (ICD-10-PCS; 2021-03-02)
PROC: 05HY33Z Insertion of Infusion Device into Upper Vein, Percutaneous Approach (ICD-10-PCS; 2021-03-03)
PROC: 0L8N0ZZ Division of Right Lower Leg Tendon, Open Approach (ICD-10-PCS; 2021-03-07)
PROC: 0LSN0ZZ Reposition Right Lower Leg Tendon, Open Approach (ICD-10-PCS; 2021-03-07)
PROC: 0QBN0ZZ Excision of Right Metatarsal, Open Approach (ICD-10-PCS; 2021-03-07)
PROC: 0QBN0ZZ Excision of Right Metatarsal, Open Approach (ICD-10-PCS; 2021-03-07)
PROC: 0QBN0ZX Excision of Right Metatarsal, Open Approach, Diagnostic (ICD-10-PCS; 2021-03-07)
PROC: 0QBN0ZX Excision of Right Metatarsal, Open Approach, Diagnostic (ICD-10-PCS; 2021-03-07)
PROC: 0JBQ0ZZ Excision of Right Foot Subcutaneous Tissue and Fascia, Open Approach (ICD-10-PCS; 2021-03-07)
DX: A41.9 Sepsis, unspecified organism (principal); L89.893 Pressure ulcer of other site, stage 3; K56.7 Ileus, unspecified; M54.9 Dorsalgia, unspecified; R26.2 Difficulty in walking, not elsewhere classified; E11.65 Type 2 diabetes mellitus with hyperglycemia; I87.2 Venous insufficiency (chronic) (peripheral); E87.1 Hypo-osmolality and hyponatremia; E11.51 Type 2 diabetes mellitus with diabetic peripheral angiopathy without gangrene; K59.00 Constipation, unspecified; E83.41 Hypermagnesemia; M47.816 Spondylosis without myelopathy or radiculopathy, lumbar region; E11.42 Type 2 diabetes mellitus with diabetic polyneuropathy; M48.061 Spinal stenosis, lumbar region without neurogenic claudication; I50.42 Chronic combined systolic (congestive) and diastolic (congestive) heart failure; R22.9 Localized swelling, mass and lump, unspecified; E43 Unspecified severe protein-calorie malnutrition; M51.37 Other intervertebral disc degeneration, lumbosacral region; B95.62 Methicillin resistant Staphylococcus aureus infection as the cause of diseases classified elsewhere; B96.5 Pseudomonas (aeruginosa) (mallei) (pseudomallei) as the cause of diseases classified elsewhere; E11.621 Type 2 diabetes mellitus with foot ulcer; L97.529 Non-pressure chronic ulcer of other part of left foot with unspecified severity; L97.519 Non-pressure chronic ulcer of other part of right foot with unspecified severity; B96.4 Proteus (mirabilis) (morganii) as the cause of diseases classified elsewhere; Z53.29 Procedure and treatment not carried out because of patient's decision for other reasons; E11.69 Type 2 diabetes mellitus with other specified complication; E11.610 Type 2 diabetes mellitus with diabetic neuropathic arthropathy; M86.8X7 Other osteomyelitis, ankle and foot; D64.9 Anemia, unspecified; Z79.4 Long term (current) use of insulin; Z89.421 Acquired absence of other right toe(s); I25.2 Old myocardial infarction; Z86.14 Personal history of Methicillin resistant Staphylococcus aureus infection; Z88.8 Allergy status to other drugs, medicaments and biological substances; Z89.412 Acquired absence of left great toe; Z87.891 Personal history of nicotine dependence; Z82.49 Family history of ischemic heart disease and other diseases of the circulatory system; Z80.41 Family history of malignant neoplasm of ovary; Z79.899 Other long term (current) drug therapy; Z91.19 Patient's noncompliance with other medical treatment and regimen; Z68.38 Body mass index [BMI] 38.0-38.9, adult

== ENCOUNTER 2021-03-27 16:27 | Emergency (ER) | payer OTHER ==
[~2021-03-27] VITALS: Ht 185.4 cm; Wt 136.1 kg
[~2021-03-27 16:27] MED LIST changes: +CEFEPIME HYDROCH2 GM IJ; +DOXYCYCLINE100 M3 PO; +LEVOFLOXACIN750 M2 PO
== END 2021-03-27 20:31 | disposition home or self-care (01) ==
LOC: ED 16:27
DX: G89.29 Other chronic pain (principal); M54.5 Low back pain; Z87.891 Personal history of nicotine dependence; Z79.899 Other long term (current) drug therapy; Z88.8 Allergy status to other drugs, medicaments and biological substances

== ENCOUNTER 2022-03-18 09:52 | Inpatient (IN) | payer OTHER ==
[~2022-03-18] VITALS: Ht 185.4 cm; Wt 131.1 kg
[2022-03-18 10:02] VITALS: BP 112/88
[2022-03-18 10:31] LABS: BASO # 0.1 10*3/uL (0.0-0.1); BASO % 0.6 % (0.0-1.0); EOS # 0.1 10*3/uL (0.0-0.4); EOS % 0.5 % (1.0-4.0); HEMATOCRIT 33.8 % (42.0-52.0); LYMPH % 9.9 % (27.0-41.0); MEAN CELL VOLUME 82.8 fl (80.0-94.0); MEAN PLATELET VOLUME 11.8 fl (9.6-12.3); MONO % 10.3 % (3.0-9.0); NEUT # 7.6 10*3/uL (2.3-7.9); NEUT % 78.3 % (47.0-73.0); NUCLEATED RED BLOOD CELL 0.1 10*3/uL (0.0-0.0); NUCLEATED RED BLOOD CELL 0.5 % (0.0-0.0); PLATELET COUNT AUTOMATED 287 10*3/uL (130-400); RED BLOOD COUNT 4.08 10*6/uL (4.50-5.90); RED CELL DISTRI WIDTH 22.1 % (0-14.5); WHITE BLOOD COUNT 9.8 10*3/uL (4.8-10.8)
[2022-03-18 10:42] VITALS: BP 113/75
[2022-03-18 10:46] LABS: ACT PARTIAL THROMBO TIME 28.8 SECONDS (20.0-32.1); INTERNATIONAL NORM RATIO 1.4 (2.0-3.5)
[2022-03-18 10:52] LABS: ALKALINE PHOSPHATASE 148 U/L (45-117); BUN 39 mg/dl (7-24); CHLORIDE 107 mmol/L (98-107); CREATININE 1.24 mg/dL (0.70-1.30); POTASSIUM 3.9 mmol/L (3.5-5.1); SGOT/AST 17 IU/L (3-35); SGPT/ALT 15 U/L (12-78); SODIUM 135 mmol/L (136-145); TOTAL PROTEIN 6.2 gm/dL (6.4-8.2)
[2022-03-18 12:25] VITALS: BP 111/53
[2022-03-18 13:15] VITALS: BP 110/65
[2022-03-18] MEDS ORDERED: CEFEPIME2 GM/100 M IV (14:58)
[2022-03-18] MEDS ORDERED: LOVENOX30 MG/0.3 SC (15:00)
[2022-03-18] MEDS ORDERED: FUROSEMIDE40 MG PO (15:01)
[2022-03-18] MEDS ORDERED: FEROSUL325 MG PO (15:02)
[2022-03-18] MEDS ORDERED: CORLANOR5 MG/5 ML PO (15:05)
[2022-03-18] MEDS ORDERED: JARDIANCE10 MG PO (15:06)
[2022-03-18] MEDS ORDERED: METOPROLOL SUCC25 M2 PO (15:07)
[2022-03-18] MEDS ORDERED: METRONIDAZOLE500 M1 PO (15:07)
[2022-03-18] MEDS ORDERED: MIRALAX119 GM PO (15:09)
[2022-03-18] MEDS ORDERED: PROTONIX40 MG PO (15:11)
[2022-03-18] MEDS ORDERED: VANCOMYCIN1.75 GM/17 IV (15:15)
[2022-03-18] MEDS ORDERED: VITAMIN C 500500 M1 PO (15:16)
[2022-03-18] MEDS ORDERED: ZINC-22050 MG PO (15:18)
[2022-03-18] MEDS ORDERED: VITAMIN D325 MCG PO (15:20)
[2022-03-18 16:00] VITALS: BP 108/76
[2022-03-18 20:00] VITALS: BP 89/67
[2022-03-19 06:31] LABS: BASO # 0.1 10*3/uL (0.0-0.1); BASO % 0.8 % (0.0-1.0); EOS # 0.1 10*3/uL (0.0-0.4); EOS % 1.7 % (1.0-4.0); HEMATOCRIT 33.9 % (42.0-52.0); LYMPH % 12.5 % (27.0-41.0); MEAN CELL VOLUME 85.4 fl (80.0-94.0); MEAN CORPUSCULAR HGB 24.2 pg (27.0-31.0); MEAN CORPUSCULAR HGB CONC 28.3 g/dl (33.0-37.0); MEAN PLATELET VOLUME 11.6 fl (9.6-12.3); MONO # 0.8 10*3/uL (0.1-1.0); MONO % 9.7 % (3.0-9.0); NEUT # 5.8 10*3/uL (2.3-7.9); NEUT % 74.9 % (47.0-73.0); NUCLEATED RED BLOOD CELL 0.4 % (0.0-0.0); PLATELET COUNT AUTOMATED 269 10*3/uL (130-400); RED BLOOD COUNT 3.97 10*6/uL (4.50-5.90); RED CELL DISTRI WIDTH 21.9 % (0-14.5); WHITE BLOOD COUNT 7.7 10*3/uL (4.8-10.8)
[2022-03-19 06:47] LABS: ACT PARTIAL THROMBO TIME 29.9 SECONDS (20.0-32.1); INTERNATIONAL NORM RATIO 1.4 (2.0-3.5)
[2022-03-19 06:48] LABS: BUN 33 mg/dl (7-24); CHLORIDE 108 mmol/L (98-107); CHOLESTEROL 72 mg/dL (<200); CREATININE 0.93 mg/dL (0.70-1.30); POTASSIUM 3.2 mmol/L (3.5-5.1); SGOT/AST 16 IU/L (3-35); SGPT/ALT 14 U/L (12-78); SODIUM 137 mmol/L (136-145); TOTAL PROTEIN 5.9 gm/dL (6.4-8.2); TRIGLYCERIDES 48 mg/dl (<150)
[2022-03-19 06:55] LABS: ALKALINE PHOSPHATASE 133 U/L (45-117); FREE T4 0.83 ng/dl (0.76-1.46); LDL CHOLESTEROL 31 mg/dL (9-159)
[2022-03-19 08:00] VITALS: BP 101/56
[2022-03-19 12:00] VITALS: BP 96/67
[2022-03-19 16:00] VITALS: BP 109/57
[2022-03-19 20:00] VITALS: BP 125/92
[2022-03-20] VITALS: BP 104/63
[2022-03-20 05:55] LABS: BUN 27 mg/dl (7-24); CHLORIDE 114 mmol/L (98-107); CREATININE 0.88 mg/dL (0.70-1.30); POTASSIUM 3.3 mmol/L (3.5-5.1); SODIUM 144 mmol/L (136-145)
[2022-03-20 06:20] LABS: BASO # 0.1 10*3/uL (0.0-0.1); BASO % 0.6 % (0.0-1.0); EOS # 0.2 10*3/uL (0.0-0.4); EOS % 2.1 % (1.0-4.0); HEMATOCRIT 35.2 % (42.0-52.0); LYMPH % 12.2 % (27.0-41.0); MEAN CELL VOLUME 85.2 fl (80.0-94.0); MEAN CORPUSCULAR HGB 23.7 pg (27.0-31.0); MEAN CORPUSCULAR HGB CONC 27.8 g/dl (33.0-37.0); MEAN PLATELET VOLUME 11.2 fl (9.6-12.3); MONO # 0.8 10*3/uL (0.1-1.0); MONO % 9.7 % (3.0-9.0); NEUT % 74.9 % (47.0-73.0); NUCLEATED RED BLOOD CELL 0.2 % (0.0-0.0); PLATELET COUNT AUTOMATED 309 10*3/uL (130-400); RED BLOOD COUNT 4.13 10*6/uL (4.50-5.90)
[2022-03-20 08:00] VITALS: BP 117/61
[2022-03-20 12:00] VITALS: BP 110/71
[2022-03-20 15:58] LABS: BUN 26 mg/dl (7-24); CHLORIDE 114 mmol/L (98-107); CREATININE 0.81 mg/dL (0.70-1.30); POTASSIUM 3.9 mmol/L (3.5-5.1); SODIUM 140 mmol/L (136-145)
[2022-03-20 16:00] VITALS: BP 105/65
[2022-03-20 20:00] VITALS: BP 106/67
[2022-03-21] VITALS: BP 104/63
[2022-03-21 06:12] LABS: BASO % 0.5 % (0.0-1.0); EOS # 0.2 10*3/uL (0.0-0.4); EOS % 1.9 % (1.0-4.0); LYMPH # 1.1 10*3/uL (1.3-4.4); LYMPH % 12.8 % (27.0-41.0); MEAN CORPUSCULAR HGB 24.3 pg (27.0-31.0); MEAN CORPUSCULAR HGB CONC 28.5 g/dl (33.0-37.0); MEAN PLATELET VOLUME 11.3 fl (9.6-12.3); MONO % 11.7 % (3.0-9.0); NEUT # 6.4 10*3/uL (2.3-7.9); NEUT % 72.8 % (47.0-73.0); NUCLEATED RED BLOOD CELL 0.2 % (0.0-0.0); PLATELET COUNT AUTOMATED 317 10*3/uL (130-400); RED CELL DISTRI WIDTH 21.8 % (0-14.5); WHITE BLOOD COUNT 8.8 10*3/uL (4.8-10.8)
[2022-03-21 06:24] LABS: BUN 27 mg/dl (7-24); CHLORIDE 110 mmol/L (98-107); CREATININE 0.82 mg/dL (0.70-1.30); POTASSIUM 3.6 mmol/L (3.5-5.1); SODIUM 139 mmol/L (136-145)
[2022-03-21 08:00] VITALS: BP 116/72
[2022-03-21 12:00] VITALS: BP 113/73
[2022-03-21 16:00] VITALS: BP 104/74
[2022-03-21 20:00] VITALS: BP 121/90
[2022-03-22] VITALS: BP 100/60
[2022-03-22 06:25] LABS: BASO # 0.1 10*3/uL (0.0-0.1); BASO % 0.9 % (0.0-1.0); EOS # 0.2 10*3/uL (0.0-0.4); EOS % 2.4 % (1.0-4.0); HEMATOCRIT 34.1 % (42.0-52.0); LYMPH # 1.3 10*3/uL (1.3-4.4); LYMPH % 16.6 % (27.0-41.0); MEAN CORPUSCULAR HGB 23.6 pg (27.0-31.0); MEAN CORPUSCULAR HGB CONC 28.2 g/dl (33.0-37.0); MONO # 0.9 10*3/uL (0.1-1.0); MONO % 12.1 % (3.0-9.0); NEUT # 5.2 10*3/uL (2.3-7.9); NEUT % 67.6 % (47.0-73.0); PLATELET COUNT AUTOMATED 318 10*3/uL (130-400); RED BLOOD COUNT 4.06 10*6/uL (4.50-5.90); RED CELL DISTRI WIDTH 21.5 % (0-14.5); WHITE BLOOD COUNT 7.6 10*3/uL (4.8-10.8)
[2022-03-22 06:29] LABS: BUN 25 mg/dl (7-24); CHLORIDE 108 mmol/L (98-107); CREATININE 0.85 mg/dL (0.70-1.30); POTASSIUM 3.3 mmol/L (3.5-5.1); SODIUM 140 mmol/L (136-145)
[2022-03-22 08:00] VITALS: BP 105/69
[2022-03-22 12:00] VITALS: BP 102/69
[2022-03-22 15:20] VITALS: BP 99/62
[2022-03-22 20:00] VITALS: BP 104/60
== END 2022-03-22 22:42 | disposition left against medical advice (07) | DRG 194 ==
LOC: ED 09:52 → 5E 11:40 → EDHOLD 11:40 → 5E 12:04
PROVIDERS: Emergency Medicine; Internal Medicine; Student in an Organized Health Care Education/Training Program; ADMIT Internal Medicine; ATTEND Internal Medicine
DX: I50.43 Acute on chronic combined systolic (congestive) and diastolic (congestive) heart failure (principal); E87.6 Hypokalemia; N17.0 Acute kidney failure with tubular necrosis; E11.65 Type 2 diabetes mellitus with hyperglycemia; Z20.822 Contact with and (suspected) exposure to COVID-19; G89.29 Other chronic pain; M54.9 Dorsalgia, unspecified; K59.00 Constipation, unspecified; M47.896 Other spondylosis, lumbar region; E11.51 Type 2 diabetes mellitus with diabetic peripheral angiopathy without gangrene; I42.8 Other cardiomyopathies; I34.0 Nonrheumatic mitral (valve) insufficiency; I47.2 Ventricular tachycardia; I95.89 Other hypotension; D64.9 Anemia, unspecified; E11.69 Type 2 diabetes mellitus with other specified complication; M86.672 Other chronic osteomyelitis, left ankle and foot; M86.671 Other chronic osteomyelitis, right ankle and foot; I44.0 Atrioventricular block, first degree; Z53.29 Procedure and treatment not carried out because of patient's decision for other reasons; S91.302A Unspecified open wound, left foot, initial encounter; S91.301A Unspecified open wound, right foot, initial encounter; Z88.8 Allergy status to other drugs, medicaments and biological substances; Z89.429 Acquired absence of other toe(s), unspecified side; Z86.14 Personal history of Methicillin resistant Staphylococcus aureus infection; I25.2 Old myocardial infarction; Z89.412 Acquired absence of left great toe; Z89.432 Acquired absence of left foot; Z89.431 Acquired absence of right foot; Z87.891 Personal history of nicotine dependence; Z82.49 Family history of ischemic heart disease and other diseases of the circulatory system; Z80.41 Family history of malignant neoplasm of ovary; Z68.38 Body mass index [BMI] 38.0-38.9, adult; X58.XXXA Exposure to other specified factors, initial encounter; Y93.89 Activity, other specified; Y92.89 Other specified places as the place of occurrence of the external cause; Y99.8 Other external cause status